=== PATIENT | male | born 1955 | race Caucasian/White ===

== ENCOUNTER → 2016-12-27 | Outpatient (CLI) | payer BC, MEDICAID ==
[2016-07-26 22:23] VITALS: BP 172/76
--- NOTE | 2016-12-28 08:00 | VAS ---
HISTORY: Carotid bruit Study: Carotid sonogram Comparison: None Technique: Multiple yarbrough scale and color flow Doppler images of the right and left carotid arterial system were obtained. The vertebral arterial system was evaluated as well. Findings: Normal color flow Doppler is seen throughout the right and left carotid arterial system. No hemodyn amically significant stenosis is seen based on velocity criteria. The right vertebral artery was no t identified. Flow in the left vertebral artery was antegrade.. IMPRESSION: 1. No hemodynamically significant stenosis. 2. Right vertebral artery not identified Reported By:
== END ==
LOC: RAD 10:08
PROVIDERS: ATTEND Internal Medicine Cardiovascular Disease
DX: R07.89 Other chest pain (principal); R09.89 Other specified symptoms and signs involving the circulatory and respiratory systems; R06.09 Other forms of dyspnea
CPT/HCPCS: 93880

== ENCOUNTER → 2017-01-10 | Outpatient (CLI) | payer BC, MEDICAID ==
[2016-07-26 22:23] VITALS: BP 172/76
== END ==
LOC: RAD 15:04
PROVIDERS: ATTEND Internal Medicine Cardiovascular Disease
DX: R07.89 Other chest pain (principal); R09.89 Other specified symptoms and signs involving the circulatory and respiratory systems; R06.09 Other forms of dyspnea
CPT/HCPCS: 93306

== ENCOUNTER → 2017-01-14 | Outpatient (CLI) | payer BC, MEDICAID ==
[2016-07-26 22:23] VITALS: BP 172/76
[~2017-01-14] MED LIST: LEXISCAN IV ONE
--- NOTE | 2017-01-14 13:37 | CT ---
HISTORY: Dyspnea Study: CT chest without con Comparison: July 27, 2016 Technique: Axial non contrast images with coronal and sagittal reformats. Dose reduction procedures were use with MA/kv adjusted for body size. Findings: Examination of the mediastinum demonstrated no evidence for mediastinal masses, enlarged lymphadenop athy, or enlarged hilar adenopathy. Calcified mediastinal node is present suggestive of old granulom atous disease. Coronary artery calcifications are present. No pleural effusions are identified. No c hest wall or axillary abnormality is identified. Those portions of the upper abdominal organs visual ized were within normal limits with the exception of a stable benign left adrenal adenoma. The lungs are hyperinflated. Emphysematous changes are present in the upper lobes more prominent on the right than the left. No alveolar infiltrates, areas of consolidation, nodules, or masses are identified. There is some peribronchial thickening consistent with bronchitis which could be acute, chronic, or both. IMPRESSION: Upper lobe emphysematous changes right greater than left. Hyperinflation Peribronchial thickening consistent with bronchitis which could be acute, chronic, or both. Reported By:
== END ==
LOC: RAD 08:29
PROVIDERS: ATTEND Internal Medicine Cardiovascular Disease
DX: R07.89 Other chest pain (principal); R09.89 Other specified symptoms and signs involving the circulatory and respiratory systems; R06.09 Other forms of dyspnea
CPT/HCPCS: 71250; 78452; 93017; A9502; J2785

== ENCOUNTER → 2017-11-07 | Outpatient (CLI) | payer BC, MEDICAID ==
[2016-07-26 22:23] VITALS: BP 172/76
--- NOTE | 2017-11-07 09:17 | VAS ---
HISTORY: Bilateral lower extremity edema Study: Bilateral lower extremity venous Doppler Comparison: None Technique: Multiple grayscale as well as spectral and color Doppler images of the bilateral lower ext remities were obtained. Findings: Sonographic evaluation of the bilateral lower extremities was performed from the level of the common femoral through the tibial veins bilaterally. There is normal compressibility, phasicity, and augment ation. IMPRESSION: No evidence for DVT. Reported By:
== END ==
LOC: RAD 08:21
PROVIDERS: ATTEND Physician Assistant
DX: R06.09 Other forms of dyspnea (principal); R22.43 Localized swelling, mass and lump, lower limb, bilateral
CPT/HCPCS: 93970

== ENCOUNTER → 2017-12-05 | Outpatient (CLI) | payer BC, MEDICAID ==
[2016-07-26 22:23] VITALS: BP 172/76
== END ==
LOC: RAD 15:28
PROVIDERS: ATTEND Physician Assistant
DX: R06.00 Dyspnea, unspecified (principal); R22.40 Localized swelling, mass and lump, unspecified lower limb
CPT/HCPCS: 93306

== ENCOUNTER 2018-11-10 16:30 | Inpatient (IN) ==
[2018-11-10] MEDS ORDERED: TUSSIONEX PENNKINETIC SUSP PO PRN (17:48)
[2018-11-10 18:11] LABS: ABG ALLEN TEST POS; ABG BASE EXCESS 4.9 mmol/L (-2.0-2.0); ABG HCO3 29.2 mmol/L (22-26)
[2018-11-10 18:24] LABS: BASOPHILS % (AUTO) 0.2 % (0.2-1.0); HEMATOCRIT 41.4 % (42.0-54.0); HEMOGLOBIN 14.2 g/dL (13.5-18.0); LYMPHOCYTES # (AUTO) 0.8 X10^3/uL (1.3-2.9); LYMPHOCYTES % (AUTO) 7.7 % (21.0-51.0); MEAN CORPUSCULAR HEMOGLOBIN 30.2 pg (27.0-34.0); MEAN CORPUSCULAR HGB CONC 34.3 g/dL (33.0-35.0); MEAN CORPUSCULAR VOLUME 87.9 fL (80.0-100.0); MEAN PLATELET VOLUME 8.6 fL (7.4-11.0); MONOCYTES # (AUTO) 0.9 x10^3/uL (0.3-0.8); MONOCYTES % (AUTO) 8.7 % (0.0-13.0); NEUTROPHILS # (AUTO) 9.1 x10^3/uL (2.2-4.8); NEUTROPHILS % (AUTO) 83.4 % (42.0-75.0); PLATELET COUNT 116 X10^3/uL (150.0-450.0); RED BLOOD COUNT 4.71 X10^6/uL (4.7-6.0); RED CELL DISTRIBUTION WIDTH 16.1 % (11.6-16.5); WHITE BLOOD COUNT 10.9 X10^3/uL (3.6-10.0)
[2018-11-10 18:36] LABS: ALANINE AMINOTRANSFERASE 30 Units/L (12-78); ALBUMIN 3.2 g/dL (3.4-5.0); ALKALINE PHOSPHATASE 55 Units/L (46-116); ASPARTATE AMINO TRANSFERASE 22 Units/L (15-37); BLOOD UREA NITROGEN 14 mg/dL (7-18); CALCIUM 8.8 mg/dL (8.5-10.1); CARBON DIOXIDE 28.4 mmol/L (21-32); CHLORIDE 97 mmol/L (98-107); COR CA(FOR HYPOALB) 9.4 mg/dL (8.5-10.1); COR NA(FOR HYPERGLY) 138 mmol/L (136-145); SODIUM 137 mmol/L (136-145); TOTAL PROTEIN 7.5 g/dL (6.4-8.2); eGFR NON BLACK RACES > 60 (>60)
[2018-11-10 19:15] VITALS: BMI 32.5
[2018-11-10] MEDS ORDERED: NS 1/2 1000 ML IV 1,000 ML ONE (19:27)
[2018-11-10] MEDS: NS 1/2 1000 ML IV 1,000 ML IV SCH (19:34)
[2018-11-10] MEDS: LEVAQUIN PREMIX IV 750 MG 750 MG/150 ML BAG IV SCH (19:34)
[2018-11-10] MEDS: PULMICORT NEB TX 0.5 MG NEB SCH (19:59)
[2018-11-10] MEDS: DUONEB 0.5 MG/3 MG NEB SCH (19:59)
--- NOTE | 2018-11-10 21:50 | RAD ---
HISTORY: Pneumonia Study: Single-view of the chest Comparison: July 26, 2016 Findings: The patient is rotated. The cardiac silhouette is enlarged. The left lower lobe is partially obscured. Otherwise the visualized lungs are clear without focal infiltrate or effusion. A right-sided port is noted and unchanged in position. If symptoms or clinical concern persist correlation with follow-up exam to include PA and lateral views may be helpful. IMPRESSION: 1. Cardiomegaly. Reported By:
[2018-11-10] MEDS: ROBITUSSIN DM PO SCH ×2 (22:51)
[2018-11-10] MEDS: ZOSYN VIAL 4.5 GRAMS 4.5 G in NS 100 ML IV + SPIKE MINIBAG* 100 ML IV SCH ×2 (22:52)
[2018-11-11] MEDS: DUONEB 0.5 MG/3 MG NEB SCH ×6 (00:07→20:15)
[2018-11-11] MEDS: ZOSYN VIAL 4.5 GRAMS 4.5 G in NS 100 ML IV + SPIKE MINIBAG* 100 ML IV SCH ×3 (05:30→21:01)
[2018-11-11] MEDS ORDERED: LASIX PO SCH (06:00)
[2018-11-11 06:11] LABS: BASOPHILS % (AUTO) 0.1 % (0.2-1.0); EOSINOPHILS % (AUTO) 0.1 % (0.9-2.9); HEMATOCRIT 37.7 % (42.0-54.0); HEMOGLOBIN 12.9 g/dL (13.5-18.0); LYMPHOCYTES # (AUTO) 0.9 X10^3/uL (1.3-2.9); LYMPHOCYTES % (AUTO) 9.7 % (21.0-51.0); MEAN CORPUSCULAR HGB CONC 34.3 g/dL (33.0-35.0); MEAN CORPUSCULAR VOLUME 87.5 fL (80.0-100.0); MEAN PLATELET VOLUME 8.6 fL (7.4-11.0); MONOCYTES # (AUTO) 0.8 x10^3/uL (0.3-0.8); MONOCYTES % (AUTO) 9.5 % (0.0-13.0); NEUTROPHILS # (AUTO) 7.1 x10^3/uL (2.2-4.8); NEUTROPHILS % (AUTO) 80.6 % (42.0-75.0); PLATELET COUNT 108 X10^3/uL (150.0-450.0); RED BLOOD COUNT 4.31 X10^6/uL (4.7-6.0); RED CELL DISTRIBUTION WIDTH 15.8 % (11.6-16.5); WHITE BLOOD COUNT 8.9 X10^3/uL (3.6-10.0)
[2018-11-11 06:14] LABS: ALANINE AMINOTRANSFERASE 26 Units/L (12-78); ALBUMIN 2.8 g/dL (3.4-5.0); ALKALINE PHOSPHATASE 48 Units/L (46-116); ASPARTATE AMINO TRANSFERASE 17 Units/L (15-37); BLOOD UREA NITROGEN 17 mg/dL (7-18); CALCIUM 8.5 mg/dL (8.5-10.1); CARBON DIOXIDE 29.1 mmol/L (21-32); CHLORIDE 97 mmol/L (98-107); COR CA(FOR HYPOALB) 9.5 mg/dL (8.5-10.1); COR NA(FOR HYPERGLY) 138 mmol/L (136-145); SODIUM 137 mmol/L (136-145); TOTAL PROTEIN 6.9 g/dL (6.4-8.2); eGFR NON BLACK RACES > 60 (>60)
[2018-11-11] MEDS ORDERED: GLUCOPHAGE PO SCH (07:00)
[2018-11-11] MEDS: PULMICORT NEB TX 0.5 MG NEB SCH ×2 (09:00→20:15)
[2018-11-11] MEDS ORDERED: GLUCOPHAGE ONE (09:27)
[2018-11-11] MEDS ORDERED: TOPROL XL ONE (09:27)
[2018-11-11] MEDS: ROBITUSSIN DM PO SCH ×4 (09:29→21:01)
[2018-11-11] MEDS: CARDIZEM CD 240 MG PO SCH (09:29)
[2018-11-11] MEDS: TOPROL XL PO SCH (09:29)
[2018-11-11] MEDS: LEVAQUIN PREMIX IV 750 MG 750 MG/150 ML BAG IV SCH (09:29)
[2018-11-11] MEDS: NEURONTIN CAP 300 MG PO SCH ×2 (09:29→21:02)
[2018-11-11] MEDS: NS 1/2 1000 ML IV 1,000 ML IV SCH (09:30)
[2018-11-11] MEDS ORDERED: NS 100 ML IV 100 ML ONE (11:29)
--- NOTE | 2018-11-11 12:34 | DR.UPDATE ---
H&P Update History and Physical Update: History and Physical reviewed and patient examined. Changes noted: Yes with the following: WAS SEEN IN THE OFFICE TODAY FOR COMPLAINTS OF SHORTNESS OF BREATH AND A PRODUCTIVE COUGH. HE REPORTED WHEEZING AND CONGESTION. HE REPORTED USING HIS INHALERS AT HOME WITHOUT IMPROVEMENT IN SYMPTOMS. HIS OXYGEN SATURATIONS WERE NOTED TO BE IN THE LOW 80s ON ROOM AIR WHILE AT REST. HE WAS ADMITTED FOR FURTHER EVALUATION AND TREATMENT OF COMMUNITY ACQUIRED PNEUMONIA, COPD EXACERBATION, AND HYPOXIA. ON ADMISSION, WE PLAN TO OBTAIN LABS, CHEST XRAY, AND START HIM ON IV LEVAQUIN AND ZOSYN. A H&P WAS COMPLETED PRIOR TO ADMISSION. NO OTHER CHANGES NOTED TO H&P.
--- NOTE | 2018-11-11 13:07 | CT ---
HISTORY: Shortness of breath Study: CT chest with contrast Comparison: 01/14/2017 Technique: Multiple axial images of the chest were obtained from the thoracic inlet to the upper abdomen after the administration of IV contrast. Findings: The mediastinum does not demonstrate significant pathological lymphadenopathy. There is no paracardial effusion observed. The thoracic aorta is normal in its contour without evidence for aneurysmal dilatation. The central pulmonary arterial system does not demonstrate central filling defects to suggest pulmonary emboli. Evaluation of the lung parenchyma demonstrates scattered areas of postinflammatory changes within the right and left chest. Subpleural emphysematous changes of the right apical lung zone are observed as well. Subpleural nodular densities within the right and left chest are observed. On image 41 of series 5 a 5 mm pulmonary nodule within medial aspect the right lower lobe is observed likely postinflammatory change. Likewise subpleural nodular density within the left lower lobe measuring 7 mm is observed likely postinflammatory. Focal consolidation within left lower lobe is noted. Continued follow-up complete resolution will be needed. The bony thorax is unremarkable in its appearance. The visualized portions of the upper abdomen are grossly unremarkable. IMPRESSION: Scattered pulmonary nodules are likely postinflammatory in nature. Likewise, focal airspace opacification in the left lower lobe is observed consistent with acute pneumonitis. No evidence for acute pulmonary embolus can be identified. No pathological lymphadenopathy can be observed. Incidental note of an adrenal adenoma within the left adrenal gland is made. Reported By:
[2018-11-11] MEDS: PLAVIX PO SCH (13:56)
[2018-11-11] MEDS: LANTUS SC SCH (17:02)
[2018-11-11] MEDS ORDERED: LANTUS SC SCH ×2 (21:00→22:00)
[2018-11-11] MEDS ORDERED: AMBIEN PO PRN (21:00)
[2018-11-11] MEDS: ZANAFLEX PO SCH (21:01)
[2018-11-11] MEDS: SNACK - Diabetic Appropriate PO SCH (21:03)
--- NOTE | 2018-11-11 21:58 | PCM.PROG ---
Progress Note - Progress Note for Day of Date of Exam: 11/11/18 - Subjective Subjective: WAS ADMITTED YESTERDAY FOR CAP AND COPD EXACERBATION. TODAY, HE IS ALERT AND ORIENTED, SITTING UP ON THE SIDE OF THE BED ON MORNING ROUNDS. HE CONTINUES WITH COMPLAINTS OF A PRODUCTIVE COUGH, WHEEZING, AND SHORTNESS OF BREATH. ON EXAMINATION, HEART IS REGULAR IN RATE AND RHYTHM. BI LATERAL LUNGS ARE CONTINUE WITH SCATTERED WHEEZING THROUGHOUT. ABDOMEN IS ROUND, SOFT, AND NON-TENDER WITH NORMAL BOWEL SOUNDS NOTED IN ALL QUADRANTS. HIS VITALS THIS MORNING ARE 97.8-82-25-90%NC-164/71. LABS WERE OBTAINED. ABNORMAL LAB VALUES INCLUDE THE FOLLOWING: RBC 4.31, HGB 12.9, HCT 37.7, CHLORIDE 97, GLUCOSE 145, ALBUMIN 2.8. AN ABG WAS OBTAINED ON ADMISSION AND REVEALEDPH 7.460, PC02 41.0, P02 55.0, HC03 29.2, 02 SATURATION 90, BASE EXCESS 4.9. SPUTUM AND BLOOD CULTURES PENDING. SPUTUM CULTURE REPORTS GROWTH OF MODERATE GRAM POSITIVE COCCI. TODAY, WE PLAN TO OBTAIN AN ECHO AND A CHEST CT. OTHERWISE, WE WILL FOLLOW UP WITH AM LABS AND CHEST XRAY AND CONTINUE TO MONITOR. - Past Medical Family Social History Past Med/Fam/Surg Hx: No changes since H&P Allergies: Allergies No Known Drug Allergies Allergy (Verified 11/10/18 19:33) - Review of Systems ROS: No change since H&P - Vital Signs and I&O's Vital Signs: Temperature 97.8 F Pulse Rate [Bilateral Radial] 81 Pulse Rate 76 Respiratory Rate 18 Blood Pressure [Right Arm] 155/61 Blood Pressure [Left Arm] 142/65 Blood Pressure 130/62 O2 Sat by Pulse Oximetry 94 Intake and Output: Intake & Output 11/09/18 11/10/18 11/11/18 11/12/18 11:59 11:59 11:59 11:59 Intake Total 760 / 760 1428 / 1428 Output Total 250 / 250 Balance 510 / 510 1428 / 1428 - Physical Exam Oriented: Normal Eyes: Normal Ear: Normal Nose: Normal Throat: Normal Respiratory: Diminished, Wheezes Cardiovascular: Normal. negative: S3, S4, Murmur : Normal Auscultation: Bowel Sounds: Normal Palpation: Normal Tenderness: Normal Skin: Normal Musculoskeletal: Normal Mood Description: Calm Affect: Normal Speech Pattern: Clear, Appropriate - Laboratory and Diagnostics Result Diagrams: 11/11/18 05:36 11/11/18 05:36 Labs: 11/10/18 18:05 Sputum - Expectorated Sputum Sputum Culture - Preliminary 11/10/18 18:05 Sputum - Expectorated Sputum - Final Laboratory WBC 8.9 X10^3/uL (3.6-10.0) 11/11/18 05:36 RBC 4.31 X10^6/uL (4.7-6.0) L 11/11/18 05:36 Hgb 12.9 g/dL (13.5-18.0) L 11/11/18 05:36 Hct 37.7 % (42.0-54.0) L 11/11/18 05:36 MCV 87.5 fL (80.0-100.0) 11/11/18 05:36 MCH 30.0 pg (27.0-34.0) 11/11/18 05:36 MCHC 34.3 g/dL (33.0-35.0) 11/11/18 05:36 RDW 15.8 % (11.6-16.5) 11/11/18 05:36 Plt Count 108 X10^3/uL (150.0-450.0) L 11/11/18 05:36 MPV 8.6 fL (7.4-11.0) 11/11/18 05:36 Neut % (Auto) 80.6 % (42.0-75.0) H 11/11/18 05:36 Lymph % (Auto) 9.7 % (21.0-51.0) L 11/11/18 05:36 [place] % (Auto) 9.5 % (0.0-13.0) 11/11/18 05:36 Eos % (Auto) 0.1 % (0.9-2.9) L 11/11/18 05:36 Baso % (Auto) 0.1 % (0.2-1.0) L 11/11/18 05:36 Neut # (Auto) 7.1 x10^3/uL (2.2-4.8) H 11/11/18 05:36 Lymph # (Auto) 0.9 X10^3/uL (1.3-2.9) L 11/11/18 05:36 [place] # (Auto) 0.8 x10^3/uL (0.3-0.8) 11/11/18 05:36 Eos # (Auto) 0.0 x10^3/uL (0.0-0.2) 11/11/18 05:36 Baso # (Auto) 0.0 X10^3/uL (0.0-0.1) 11/11/18 05:36 Absolute Nucleated RBC 0.0 /100WBC 11/11/18 05:36 Sample Site Lr 11/10/18 18:09 ABG pH 7.460 (7.35-7.45) H 11/10/18 18:09 ABG pCO2 41.0 mmHg (35.0-45.0) 11/10/18 18:09 ABG pO2 55.0 mmHg (80.0-100.0) L 11/10/18 18:09 ABG HCO3 29.2 mmol/L (22-26) H 11/10/18 18:09 ABG O2 Saturation 90.0 % (90-100) 11/10/18 18:09 ABG Base Excess 4.9 mmol/L (-2.0-2.0) H 11/10/18 18:09 Kip Test Pos 11/10/18 18:09 A-a Gradient 93.0 mmHg 11/10/18 18:09 FiO2 28.0 11/10/18 18:09 Blood Gas Comments Pt josé well. cdn 11/10/18 18:09 Sodium 137 mmol/L (136-145) 11/11/18 05:36 Corrected Sodium 138 mmol/L (136-145) 11/11/18 05:36 Potassium 3.5 mmol/L (3.5-5.1) 11/11/18 05:36 Chloride 97 mmol/L (98-107) L 11/11/18 05:36 Carbon Dioxide 29.1 mmol/L (21-32) 11/11/18 05:36 BUN 17 mg/dL (7-18) 11/11/18 05:36 Creatinine 1.10 mg/dL (0.70-1.30) 11/11/18 05:36 Est GFR (MDRD) Af Amer > 60 (>60) 11/11/18 05:36 Est GFR (MDRD) Non-Af > 60 (>60) 11/11/18 05:36 Glucose 145 mg/dL (65-99) H 11/11/18 05:36 POC Glucose (mg/dL) 142 mg/dL (65-99) H 11/11/18 20:55 Calcium 8.5 mg/dL (8.5-10.1) 11/11/18 05:36 Corrected Calcium 9.5 mg/dL (8.5-10.1) 11/11/18 05:36 Total Bilirubin 0.70 mg/dL (0.2-1.0) 11/11/18 05:36 AST 17 Units/L (15-37) 11/11/18 05:36 ALT 26 Units/L (12-78) 11/11/18 05:36 Alkaline Phosphatase 48 Units/L (46-116) 11/11/18 05:36 Total Protein 6.9 g/dL (6.4-8.2) 11/11/18 05:36 Albumin 2.8 g/dL (3.4-5.0) L 11/11/18 05:36 Globulin 4.1 g/dL (2.5-4.5) 11/11/18 05:36 Albumin/Globulin Ratio 0.7 Ratio (1.1-2.1) L 11/11/18 05:36 - Plan (1) Pneumonia Status: Acute Qualifiers: Pneumonia type: due to unspecified organism Laterality: unspecified laterality Lung location: unspecified part of lung Qualified Code(s): J18.9 - Pneumonia, unspecified organism Plan: IV ANTIBIOTICS, RESPIRATORY TX, SUPPLEMENTAL OXYGEN, OBTAIN CHEST CT, C ONTINUE TO MONITOR (2) COPD exacerbation Status: Acute Plan: IV ANTIBIOTICS, RESPIRATORY TX, SUPPLEMENTAL OXYGEN, OBTAIN CHEST CT, CONTINUE TO MONITOR (3) CHF (congestive heart failure) Status: Chronic Qualifiers: Heart failure type: unspecified Heart failure chronicity: chronic Qualified Code(s): I50.9 - Heart failure, unspecified Plan: OBTAIN ECHO, CONTINUE TO MONITOR (4) Diabetes mellitus, type 2 Status: Chronic Qualifiers: Diabetes mellitus terminal supervisor insulin use: with [facility] use Diabetes mellitus complication status: without complication Qualified Code(s): E11.9 - Type 2 diabetes mellitus without complications; Z79.4 - senior care (current) use of insulin (5) Hyperlipidemia Status: Chronic Qualifiers: Hyperlipidemia type: mixed hyperlipidemia Plan: CONTINUE HOME MEDS (6) Hypertension Status: Chronic Qualifiers: Hypertension type: essential hypertension Qualified Code(s): I10 - Essential (primary) hypertension Plan: CONTINUE HOME MEDS
[2018-11-12] MEDS: DUONEB 0.5 MG/3 MG NEB SCH ×6 (01:25→20:35)
[2018-11-12 05:18] LABS: BASOPHILS % (AUTO) 0.2 % (0.2-1.0); EOSINOPHILS % (AUTO) 0.4 % (0.9-2.9); HEMATOCRIT 40.2 % (42.0-54.0); HEMOGLOBIN 13.5 g/dL (13.5-18.0); LYMPHOCYTES # (AUTO) 1.1 X10^3/uL (1.3-2.9); LYMPHOCYTES % (AUTO) 17.1 % (21.0-51.0); MEAN CORPUSCULAR HEMOGLOBIN 29.8 pg (27.0-34.0); MEAN CORPUSCULAR HGB CONC 33.7 g/dL (33.0-35.0); MEAN CORPUSCULAR VOLUME 88.5 fL (80.0-100.0); MEAN PLATELET VOLUME 8.6 fL (7.4-11.0); MONOCYTES # (AUTO) 0.7 x10^3/uL (0.3-0.8); MONOCYTES % (AUTO) 10.7 % (0.0-13.0); NEUTROPHILS # (AUTO) 4.8 x10^3/uL (2.2-4.8); NEUTROPHILS % (AUTO) 71.6 % (42.0-75.0); PLATELET COUNT 135 X10^3/uL (150.0-450.0); RED BLOOD COUNT 4.54 X10^6/uL (4.7-6.0); RED CELL DISTRIBUTION WIDTH 15.6 % (11.6-16.5); WHITE BLOOD COUNT 6.7 X10^3/uL (3.6-10.0)
[2018-11-12 05:31] LABS: ALANINE AMINOTRANSFERASE 29 Units/L (12-78); ALBUMIN 3.1 g/dL (3.4-5.0); ALKALINE PHOSPHATASE 54 Units/L (46-116); ASPARTATE AMINO TRANSFERASE 18 Units/L (15-37); BLOOD UREA NITROGEN 20 mg/dL (7-18); CALCIUM 8.9 mg/dL (8.5-10.1); CHLORIDE 98 mmol/L (98-107); COR CA(FOR HYPOALB) 9.6 mg/dL (8.5-10.1); COR NA(FOR HYPERGLY) 139 mmol/L (136-145); CREATININE 1.15 mg/dL (0.70-1.30); SODIUM 138 mmol/L (136-145); TOTAL PROTEIN 7.7 g/dL (6.4-8.2); eGFR NON BLACK RACES > 60 (>60)
[2018-11-12 05:48] LABS: B-TYPE NATRIURETIC PEPTIDE 10.8 pg/mL (0-79)
--- NOTE | 2018-11-12 06:26 | RAD ---
Chest, one view Indication: Pneumonia Comparison: 11/10/18 Findings: There is stable cardiomegaly without congestive failure. Lungs are hyperinflated with coarsened interstitial markings, compatible with COPD. There is moderate peribronchial thickening. No acute alveolar infiltrates are identified. There is no pleural effusion or pneumothorax. A right-sided port catheter tip is coiled at the junction of the right IJ and SVC. Impression: Cardiomegaly without CHF. COPD with moderate peribronchial thickening, either representing acute, chronic or acute on bronchitis. No acute alveolar infiltrates identified Reported By:
[2018-11-12] MEDS ORDERED: POTASSIUM CHL 40 MEQ/NS 0.45% 500 ML IV PRN (06:50)
[2018-11-12] MEDS ORDERED: K-DUR TAB 20 MEQ PO PRN (06:50)
[2018-11-12] MEDS ORDERED: KLOR-CON PO PRN (06:50)
[2018-11-12] MEDS ORDERED: K-RIDER 10 MEQ/NS 100 ML 10 MEQ/100 ML BAG IV PRN (06:50)
[2018-11-12] MEDS ORDERED: MICRO K EXTEN CAP 10 MEQ PO PRN (06:50)
[2018-11-12] MEDS ORDERED: POTASSIUM CHLORIDE LIQ 20 MEQ UDC PO PRN (06:50)
[2018-11-12] MEDS ORDERED: POTASSIUM CHL 60 MEQ/NS 0.45% 500 ML IV PRN (06:50)
[2018-11-12] MEDS: NS 1/2 1000 ML IV 1,000 ML IV SCH ×3 (07:34→14:24)
[2018-11-12] MEDS ORDERED: TOPROL XL ONE (07:40)
[2018-11-12] MEDS: TOPROL XL PO SCH (08:21)
[2018-11-12] MEDS: CARDIZEM CD 240 MG PO SCH (08:21)
[2018-11-12] MEDS: ROBITUSSIN DM PO SCH ×4 (08:21→20:23)
[2018-11-12] MEDS: NEURONTIN CAP 300 MG PO SCH ×2 (08:22→20:22)
[2018-11-12] MEDS: PLAVIX PO SCH (08:22)
[2018-11-12] MEDS: LEVAQUIN PREMIX IV 750 MG 750 MG/150 ML BAG IV SCH (08:23)
[2018-11-12] MEDS: PULMICORT NEB TX 0.5 MG NEB SCH ×2 (08:26→20:35)
[2018-11-12] MEDS: LASIX IVP SCH ×2 (11:26→20:23)
--- NOTE | 2018-11-12 12:28 | PCM.PROG ---
Progress Note - Progress Note for Day of Date of Exam: 11/12/18 - Subjective Subjective: WAS ADMITTED YESTERDAY FOR CAP AND COPD EXACERBATION. HE ALSO HAS A HISTORY OF CHF. TODAY, HE IS ALERT AND ORIENTED, SITTING UP ON THE SIDE OF THE BED ON MORNING ROUNDS. HE CONTINUES WITH COMPLAINTS OF A PRODUCTIVE COUGH, WHEEZING, AND SHORTNESS OF BREATH, BUT REPORTS SLIGHT IMPROVEMENT SINCE YESTERDAY. ON EXAMINATION, HEART IS REGULAR IN RATE AND RHYTHM. BILATERAL LUNGS ARE CONTINUE WITH SCATTERED WHEEZING THROUGHOUT. ABDOMEN IS ROUND, SOFT, AND NON-TENDER WITH NORMAL BOWEL SOUNDS NOTED IN ALL QUADRANTS. HIS VITALS THIS MORNING ARE 98.1-78-23-92%NC-126/69. LABS WERE OBTAINED. ABNORMAL LAB VALUES INCLUDE THE FOLLOWING: RBC 4.54, HCT 40.2, BUN 20, GLUCOSE 138, ALBUMIN 3.1, G LOBULIN 4.6. SPUTUM AND BLOOD CULTURES PENDING. SPUTUM CULTURE REPORTS GROWTH OF MODERATE GRAM POSITIVE COCCI. A CHEST CT WAS OBTAINED YESTERDAY AND REVEALED: Scattered pulmonary nodules are likely postinflammatory in nature. Likewise, focal airspace opacification in the left lower lobe is observed consistent with acute pneumonitis. No evidence for acute pulmonary embolus can be identified. No pathological lymphadenopathy can be observed. Incidental note of an adrenal adenoma within the left adrenal gland is made. ECHO REVEALED AN EJECTION FRACTION OF 52%. THIS MORNINGS CHEST XRAY REVEALED: Cardiomegaly without CHF. COPD with moderate peribronchial thickening, either representing acute, chronic or acute on bronchitis. No acute alveolar infiltrates identified. TODAY, WE WILL CONTINUE WITH IV ANTIBIOTICS, RESPIRATORY TX, SUPPLEMENTAL OXYGEN, LASIX 40MG IV BID. OTHERWISE, WE WILL FOLLOW UP WITH AM LABS AND CHEST XRAY AND CONTINUE TO MONITOR. - Past Medical Family Social History Past Med/Fam/Surg Hx: No changes since H&P Allergies: Allergies No Known Drug Allergies Allergy (Verified 11/10/18 19:33) - Review of Systems ROS: No change since H&P - Vital Signs and I&O's Vital Signs: Temperature 98.1 F Pulse Rate [Bilateral Radial] 82 Pulse Rate 78 Respiratory Rate 30 Blood Pressure [Right Arm] 155/61 Blood Pressure [Left Arm] 141/65 Blood Pressure 130/62 O2 Sat by Pulse Oximetry 93 Intake and Output: Intake & Output 11/10/18 11/11/18 11/12/18 11/13/18 11:59 11:59 11:59 11:59 Intake Total 760 / 760 2958 / 2958 Output Total 250 / 250 Balance 510 / 510 2958 / 2958 - Physical Exam Oriented: Normal Eyes: Normal Ear: Normal Nose: Normal Throat: Normal Respiratory: Diminished, Wheezes Cardiovascular: Normal. negative: S3, S4, Murmur : Normal Auscultation: Bowel Sounds: Normal Palpation: Normal Tenderness: Normal Skin: Normal Musculoskeletal: Normal Mood Description: Calm Affect: Normal Speech Pattern: Clear, Appropriate - Laboratory and Diagnostics Result Diagrams: 11/12/18 04:50 11/12/18 04:50 Labs: 11/10/18 18:05 Blood Blood Culture - Preliminary 11/10/18 18:00 Blood Blood Culture - Preliminary 11/10/18 18:05 Sputum - Expectorated Sputum Sputum Culture - Final 11/10/18 18:05 Sputum - Expectorated Sputum - Final Laboratory WBC 6.7 X10^3/uL (3.6-10.0) 11/12/18 04:50 RBC 4.54 X10^6/uL (4.7-6.0) L 11/12/18 04:50 Hgb 13.5 g/dL (13.5-18.0) 11/12/18 04:50 Hct 40.2 % (42.0-54.0) L 11/12/18 04:50 MCV 88.5 fL (80.0-100.0) 11/12/18 04:50 MCH 29.8 pg (27.0-34.0) 11/12/18 04:50 MCHC 33.7 g/dL (33.0-35.0) 11/12/18 04:50 RDW 15.6 % (11.6-16.5) 11/12/18 04:50 Plt Count 135 X10^3/uL (150.0-450.0) L 11/12/18 04:50 MPV 8.6 fL (7.4-11.0) 11/12/18 04:50 Neut % (Auto) 71.6 % (42.0-75.0) 11/12/18 04:50 Lymph % (Auto) 17.1 % (21.0-51.0) L 11/12/18 04:50 [place] % (Auto) 10.7 % (0.0-13.0) 11/12/18 04:50 Eos % (Auto) 0.4 % (0.9-2.9) L 11/12/18 04:50 Baso % (Auto) 0.2 % (0.2-1.0) 11/12/18 04:50 Neut # (Auto) 4.8 x10^3/uL (2.2-4.8) 11/12/18 04:50 Lymph # (Auto) 1.1 X10^3/uL (1.3-2.9) L 11/12/18 04:50 [place] # (Auto) 0.7 x10^3/uL (0.3-0.8) 11/12/18 04:50 Eos # (Auto) 0.0 x10^3/uL (0.0-0.2) 11/12/18 04:50 Baso # (Auto) 0.0 X10^3/uL (0.0-0.1) 11/12/18 04:50 Absolute Nucleated RBC 0.1 /100WBC 11/12/18 04:50 Sample Site Lr 11/10/18 18:09 ABG pH 7.460 (7.35-7.45) H 11/10/18 18:09 ABG pCO2 41.0 mmHg (35.0-45.0) 11/10/18 18:09 ABG pO2 55.0 mmHg (80.0-100.0) L 11/10/18 18:09 ABG HCO3 29.2 mmol/L (22-26) H 11/10/18 18:09 ABG O2 Saturation 90.0 % (90-100) 11/10/18 18:09 ABG Base Excess 4.9 mmol/L (-2.0-2.0) H 11/10/18 18:09 Kip Test Pos 11/10/18 18:09 A-a Gradient 93.0 mmHg 11/10/18 18:09 FiO2 28.0 11/10/18 18:09 Blood Gas Comments Pt josé well. cdn 11/10/18 18:09 Sodium 138 mmol/L (136-145) 11/12/18 04:50 Corrected Sodium 139 mmol/L (136-145) 11/12/18 04:50 Potassium 3.8 mmol/L (3.5-5.1) 11/12/18 04:50 Chloride 98 mmol/L (98-107) 11/12/18 04:50 Carbon Dioxide 31.0 mmol/L (21-32) 11/12/18 04:50 BUN 20 mg/dL (7-18) H 11/12/18 04:50 Creatinine 1.15 mg/dL (0.70-1.30) 11/12/18 04:50 Est GFR (MDRD) Af Amer > 60 (>60) 11/12/18 04:50 Est GFR (MDRD) Non-Af > 60 (>60) 11/12/18 04:50 Glucose 138 mg/dL (65-99) H 11/12/18 04:50 POC Glucose (mg/dL) 182 mg/dL (65-99) H 11/12/18 11:29 Calcium 8.9 mg/dL (8.5-10.1) 11/12/18 04:50 Corrected Calcium 9.6 mg/dL (8.5-10.1) 11/12/18 04:50 Magnesium 2.2 mg/dL (1.7-2.9) 11/12/18 04:50 Total Bilirubin 0.50 mg/dL (0.2-1.0) 11/12/18 04:50 AST 18 Units/L (15-37) 11/12/18 04:50 ALT 29 Units/L (12-78) 11/12/18 04:50 Alkaline Phosphatase 54 Units/L (46-116) 11/12/18 04:50 B-Natriuretic Peptide 10.8 pg/mL (0-79) 11/12/18 04:50 Total Protein 7.7 g/dL (6.4-8.2) 11/12/18 04:50 Albumin 3.1 g/dL (3.4-5.0) L 11/12/18 04:50 Globulin 4.6 g/dL (2.5-4.5) H 11/12/18 04:50 Albumin/Globulin Ratio 0.7 Ratio (1.1-2.1) L 11/12/18 04:50 - Plan (1) Pneumonia Status: Acute Qualifiers: Pneumonia type: due to unspecified organism Laterality: unspecified laterality Lung location: unspecified part of lung Qualified Code(s): J18.9 - Pneumonia, unspecified organism Plan: IV ANTIBIOTICS, RESPIRATORY TX, SUPPLEMENTAL OXYGEN, OBTAIN CHEST CT, CONTINUE TO MONITOR (2) COPD exacerbation Status: Acute Plan: IV ANTIBIOTICS, RESPIRATORY TX, SUPPLEMENTAL OXYGEN, CONTINUE TO MONITOR (3) CHF (congestive heart failure) Status: Chronic Qualifiers: Heart failure type: unspecified Heart failure chronicity: chronic Qualified Code(s): I50.9 - Heart failure, unspecified Plan: CONTINUE TO MONITOR (4) Diabetes mellitus, type 2 Status: Chronic Qualifiers: Diabetes mellitus assisted insulin use: with assisted use Diabetes mellitus complication status: without complication Qualified Code(s): E11.9 - Type 2 diabetes mellitus without complications; Z79.4 - termite exterminator (current) use of insulin (5) Hyperlipidemia Status: Chronic Qualifiers: Hyperlipidemia type: mixed hyperlipidemia Plan: CONTINUE HOME MEDS (6) Hypertension Status: Chronic Qualifiers: Hypertension type: essential hypertension Qualified Code(s): I10 - Essential (primary) hypertension Plan: CONTINUE HOME MEDS
[2018-11-12] MEDS: ZOSYN VIAL 4.5 GRAMS 4.5 G in NS 100 ML IV + SPIKE MINIBAG* 100 ML IV SCH ×3 (13:14→21:30)
[2018-11-12] MEDS ORDERED: NS 1/2 1000 ML IV 1,000 ML ONE (13:44)
[2018-11-12] MEDS: LANTUS SC SCH (16:16)
[2018-11-12] MEDS: ZANAFLEX PO SCH (20:22)
[2018-11-12] MEDS: SNACK - Diabetic Appropriate PO SCH (20:29)
[2018-11-13] MEDS: DUONEB 0.5 MG/3 MG NEB SCH ×4 (01:10→12:09)
[2018-11-13] MEDS: ZOSYN VIAL 4.5 GRAMS 4.5 G in NS 100 ML IV + SPIKE MINIBAG* 100 ML IV SCH (05:17)
[2018-11-13] MEDS: NS 1/2 1000 ML IV 1,000 ML IV SCH (05:17)
[2018-11-13 06:12] LABS: BASOPHILS % (AUTO) 0.3 % (0.2-1.0); EOSINOPHILS # (AUTO) 0.1 x10^3/uL (0.0-0.2); EOSINOPHILS % (AUTO) 0.8 % (0.9-2.9); HEMATOCRIT 37.8 % (42.0-54.0); HEMOGLOBIN 12.9 g/dL (13.5-18.0); LYMPHOCYTES # (AUTO) 1.1 X10^3/uL (1.3-2.9); LYMPHOCYTES % (AUTO) 17.8 % (21.0-51.0); MEAN CORPUSCULAR HEMOGLOBIN 29.8 pg (27.0-34.0); MEAN CORPUSCULAR HGB CONC 34.2 g/dL (33.0-35.0); MEAN PLATELET VOLUME 8.6 fL (7.4-11.0); MONOCYTES # (AUTO) 0.7 x10^3/uL (0.3-0.8); MONOCYTES % (AUTO) 11.6 % (0.0-13.0); NEUTROPHILS # (AUTO) 4.3 x10^3/uL (2.2-4.8); NEUTROPHILS % (AUTO) 69.5 % (42.0-75.0); PLATELET COUNT 143 X10^3/uL (150.0-450.0); RED BLOOD COUNT 4.34 X10^6/uL (4.7-6.0); RED CELL DISTRIBUTION WIDTH 15.6 % (11.6-16.5); WHITE BLOOD COUNT 6.2 X10^3/uL (3.6-10.0)
[2018-11-13 06:28] LABS: ALANINE AMINOTRANSFERASE 38 Units/L (12-78); ALBUMIN 2.9 g/dL (3.4-5.0); ALKALINE PHOSPHATASE 53 Units/L (46-116); ASPARTATE AMINO TRANSFERASE 24 Units/L (15-37); BLOOD UREA NITROGEN 16 mg/dL (7-18); CALCIUM 8.3 mg/dL (8.5-10.1); CARBON DIOXIDE 30.9 mmol/L (21-32); CHLORIDE 102 mmol/L (98-107); COR CA(FOR HYPOALB) 9.2 mg/dL (8.5-10.1); COR NA(FOR HYPERGLY) 140 mmol/L (136-145); CREATININE 1.03 mg/dL (0.70-1.30); SODIUM 139 mmol/L (136-145); TOTAL PROTEIN 7.2 g/dL (6.4-8.2); eGFR NON BLACK RACES > 60 (>60)
--- NOTE | 2018-11-13 06:33 | RAD ---
History: Pneumonia Study: Portable AP chest Comparison: Yesterday Findings: There is unchanged mild cardiomegaly and moderate vascular congestion. There is no significant effusion. No focal lung consolidation is demonstrated. There is an unchanged Port-A-Cath via the right subclavian vein. Impression: Unchanged vascular congestion without effusion Reported By:
[2018-11-13] MEDS ORDERED: TOPROL XL ONE (07:05)
[2018-11-13] MEDS: PULMICORT NEB TX 0.5 MG NEB SCH (08:10)
[2018-11-13] MEDS: TOPROL XL PO SCH (08:30)
[2018-11-13] MEDS: LASIX IVP SCH (08:30)
[2018-11-13] MEDS: CARDIZEM CD 240 MG PO SCH (08:30)
[2018-11-13] MEDS: LEVAQUIN PREMIX IV 750 MG 750 MG/150 ML BAG IV SCH (08:30)
[2018-11-13] MEDS: PLAVIX PO SCH (08:30)
[2018-11-13] MEDS: NEURONTIN CAP 300 MG PO SCH (08:30)
[2018-11-13] MEDS: ROBITUSSIN DM PO SCH (08:30)
[2018-11-13 11:45] VITALS: BP 161/81
== END 2018-11-13 12:50 | disposition home or self-care (01) | DRG 194 ==
LOC: ICU 17:37
PROVIDERS: ADMIT Internal Medicine; ATTEND Internal Medicine
DX: E11.65 Type 2 diabetes mellitus with hyperglycemia; I10 Essential (primary) hypertension; Z66 Do not resuscitate; J44.1 Chronic obstructive pulmonary disease with (acute) exacerbation; R06.02 Shortness of breath; J18.8 Other pneumonia, unspecified organism; I25.9 Chronic ischemic heart disease, unspecified; J44.0 Chronic obstructive pulmonary disease with (acute) lower respiratory infection
CPT/HCPCS: 36415; 36600; 71010; 71045; 71260; 80053; 82803; 83735; 83880; 84132; 85025; 87040; 87070; 87205; 93306; 94640; A4222; J1815; J1940; J1956; J2543; J7050; J7620; J7626

== ENCOUNTER 2023-05-31 11:52 | Inpatient (IN) ==
[2023-05-31] MEDS ORDERED: TYLENOL 325 MG TAB PO PRN (12:17)
[2023-05-31] MEDS ORDERED: BENADRYL INJ 50 MG VIAL IVP ONE (12:17)
[2023-05-31 15:00] VITALS: BMI 26.3
[2023-05-31] MEDS: NS 1,000 ML IV 1,000 ML IV SCH (15:02)
[2023-05-31] MEDS ORDERED: BENADRYL INJ 50 MG VIAL ONE (15:26)
[2023-05-31] MEDS ORDERED: NS 500 ML IV 500 ML IV ONE (17:58)
[2023-05-31] MEDS: NICOTINE PATCH TD SCH (19:23)
[2023-05-31] MEDS: CHECK PATCH XX SCH (21:05)
[2023-06-01 04:05] LABS: BILIRUBIN,URINE NEGATIVE (NEGATIVE); BLOOD/HEMOGLOBIN,URINE 2+ (NEGATIVE); GLUCOSE, URINE 1+ (NEGATIVE); KETONES,URINE NEGATIVE (NEGATIVE); LEUKOCYTE ESTERASE ,URINE NEGATIVE (NEGATIVE); NITRITES,URINE NEGATIVE (NEGATIVE); PROTEIN,URINE 3+ (NEGATIVE); UROBILINOGEN,URINE NORMAL (NORMAL)
[2023-06-01 04:10] LABS: APPEARANCE,URINE CLEAR (CLEAR); BACTERIA,URINE NEGATIVE /HPF (NEGATIVE); COLOR,URINE PALE YELLOW (YELLOW); RBC,URINE 0-2 /HPF (0-3); SQUAMOUS EPITHELIAL CELL,UR RARE /HPF (NEGATIVE)
[2023-06-01 04:37] LABS: BASOPHILS # (AUTO) 0.2 X10^3/uL (0.0-0.1); BASOPHILS % (AUTO) 1.7 % (0.2-1.0); EOSINOPHILS # (AUTO) 0.2 x10^3/uL (0.0-0.2); EOSINOPHILS % (AUTO) 1.2 % (0.9-2.9); HEMATOCRIT 25.1 % (42.0-54.0); LYMPHOCYTES # (AUTO) 0.7 X10^3/uL (1.3-2.9); LYMPHOCYTES % (AUTO) 5.1 % (21.0-51.0); MEAN CORPUSCULAR HEMOGLOBIN 22.3 pg (27.0-34.0); MEAN CORPUSCULAR HGB CONC 32.4 g/dL (33.0-35.0); MEAN CORPUSCULAR VOLUME 68.7 fL (80.0-100.0); MEAN PLATELET VOLUME 7.5 fL (7.4-11.0); MONOCYTES # (AUTO) 0.8 x10^3/uL (0.3-0.8); MONOCYTES % (AUTO) 6.4 % (0.0-13.0); NEUTROPHILS # (AUTO) 11.2 x10^3/uL (2.2-4.8); NEUTROPHILS % (AUTO) 85.6 % (42.0-75.0); PLATELET COUNT 432 X10^3/uL (150.0-450.0); RED BLOOD COUNT 3.65 X10^6/uL (4.7-6.0); RED CELL DISTRIBUTION WIDTH 25.3 % (11.6-16.5)
[2023-06-01 04:42] LABS: HEMOGLOBIN 8.1 g/dL (13.5-18.0)
[2023-06-01 04:53] LABS: ALBUMIN 1.6 g/dL (3.4-5.0); CALCIUM 8.7 mg/dL (8.5-10.1); CARBON DIOXIDE 32.5 mmol/L (21-32); COR CA(FOR HYPOALB) 10.6 mg/dL (8.5-10.1); CREATININE 2.42 mg/dL (0.70-1.30); POTASSIUM 3.7 mmol/L (3.5-5.1); TOTAL PROTEIN 7.8 g/dL (6.4-8.2)
[2023-06-01 05:06] LABS: PLATELET MORPHOLOGY COMMENT NORMAL (NORMAL)
[2023-06-01 05:07] LABS: ANISOCYTOSIS 3+; HYPOCHROMASIA 2+; MICROCYTOSIS 1+; POIKILOCYTOSIS PRESENT
[2023-06-01] MEDS ORDERED: CONSULT PHARMACY - POTASSIUM & MAGNESIUM XX SCH (06:00)
[2023-06-01] MEDS ORDERED: COMPAZINE PO PRN (07:40)
[2023-06-01] MEDS ORDERED: ZOFRAN TAB 4 MG PO PRN (07:40)
[2023-06-01] MEDS ORDERED: DUONEB 0.5 MG/3 MG (3 mL) NEB SCH (08:00)
[2023-06-01] MEDS ORDERED: TOPROL XL PO ONE (08:01)
--- NOTE | 2023-06-01 08:29 | DR.UPDATE ---
H&P Update H&P Reviewed: Yes Any changes to H&P?: Yes Changes noted:: IS A 67 YEAR OLD PATIENT OF OURS. HE HAS A PMH OF TIAs, PERIPHERAL ARTERY DISEASE, CORONARY ARTERY DISEASE, CHF, SC, HTN, CARDIAC STENTS, COPD, SLEEP APNEA, GERD, DM II, DIABETIC NEUROPATHY, ANEMIA, PAST HX OF COLON CANCER. SURGICAL HX INCLUDES: APPENDECTOMY, BOWEL RESECTION, MULTIPLE HERNIA REPAIRS, RIGHT FOOT SURGERY. PATIENT IS REPORTEDLY SCHEDULED FOR A RIGHT BELOW THE KNEE AMPUTATION ON SATURDAY WITH . HE PRESENTED TO THE HOSPITAL ON 05/31/23 FOR OUTPATIENT LABS. LABS REVEALED A CRITICALLY LOW HEMOGLOBIN OF 5.7, HCT 17.8. ADDITIONALLY, WBC WAS 13.5, SODIUM 132, BUN 39, CREATININE 2.76, GLUCOSE 216, ALK PHOS 192, ALBUMIN 1.7. OUTPATIENT CHEST XRAY REVEALED NO ACTIVE PULMONARY DISEASE. DECISION WAS MADE TO ADMIT PATIENT TO THE HOSPITAL FOR FURTHER EVALUATION AND TREATMENT OF ANEMIA, DEHYDRATION, ACUTE ON CHRONIC RENAL FAILURE, HYPOALBUMINEMIA. ON ADMISSION, HE WAS STARTED ON NORMAL SALINE AT 80 ML/HR, OTBS ACHS, HUMULIN R SLIDING SCALE, DUONEBS TID, PULMICORT NEBS BID. HIS HOME MEDICATIONS OF CARDIZEM, CYMBALTA, DURAGESIC PATCH, TOPROL XL, ZOFRAN PRN, ROXICODONE PRN, COMPAZINE PRN, AND CRESTOR WERE RESUMED. WE TYPE/SCREENED, CROSSMATCHED, AND TRANSFUSED TWO UNITS OF PACKED RED BLOOD CELLS AFTER ADMISSION. ON 06/01/23 MORNING LABS AT 03:45 REVEALED A HEMOGLOBIN OF 8.1, HCT 25.1. WE PLAN TO MONITOR H&H TODAY AND TRANSFUSE ADDITIONAL UNITS OF PACKED RED BLOOD CELLS IF NEEDED. TIME SPENT ON CLINICAL ASSESSMENT, REVIEWING LABS AND IMAGING, DECISION MAKING, AND DOCUMENTATION GREATER THAN 75 MINUTES. Patient was examined?: Yes Vital Signs: Temp Pulse Resp BP Pulse Ox O2 Del Method O2 Flow Rate 05/31/23 20:30 Nasal Cannula 2 06/01/23 04:00 98.9 F 94 H 20 151/68 95 Nasal Cannula 2 06/01/23 00:00 98.9 F 89 20 151/67 97 Nasal Cannula 2 05/31/23 19:00 Room Air 05/31/23 20:00 97.8 F 84 20 110/55 98 Nasal Cannula 2 05/31/23 16:40 20 05/31/23 16:00 97.5 F L 83 20 138/60 98 Nasal Cannula 2 05/31/23 14:02 Room Air 05/31/23 15:40 20 05/31/23 14:10 97.6 F 81 20 134/63 100 Nasal Cannula 2 FiO2 05/31/23 20:30 28 06/01/23 04:00 06/01/23 00:00 05/31/23 19:00 05/31/23 20:00 05/31/23 16:40 05/31/23 16:00 05/31/23 14:02 05/31/23 15:40 05/31/23 14:10
[2023-06-01] MEDS: TOPROL XL PO SCH (08:55)
[2023-06-01] MEDS: DURAGESIC 75 mcg/HR PATCH TD SCH (08:55)
[2023-06-01] MEDS: NS 1,000 ML IV 1,000 ML IV SCH ×2 (08:56→15:35)
[2023-06-01] MEDS: NICOTINE PATCH TD SCH (08:56)
[2023-06-01] MEDS: CARDIZEM CD 180 MG 24-HR PO SCH (08:56)
[2023-06-01] MEDS: MAG-OX TAB PO SCH ×2 (08:56→10:10)
[2023-06-01] MEDS: CHECK PATCH XX SCH ×2 (08:56→20:58)
[2023-06-01] MEDS: CYMBALTA PO SCH (08:56)
[2023-06-01] MEDS ORDERED: PULMICORT NEB TX 0.5 MG NEB SCH (09:00)
[2023-06-01] MEDS ORDERED: K-DUR TAB 20 MEQ PO SCH (09:00)
[2023-06-01 09:02] LABS: HEMATOCRIT 26.1 % (42.0-54.0); HEMOGLOBIN 8.4 g/dL (13.5-18.0)
[2023-06-01] MEDS: NovoLIN R (or HumuLIN R) SUBCUT PRN ×3 (11:35→21:00)
[2023-06-01 14:59] LABS: HEMATOCRIT 26.1 % (42.0-54.0); HEMOGLOBIN 8.4 g/dL (13.5-18.0)
[2023-06-01 20:15] LABS: HEMATOCRIT 23.6 % (42.0-54.0); HEMOGLOBIN 7.6 g/dL (13.5-18.0)
[2023-06-01] MEDS: CRESTOR TAB 10 MG PO SCH (20:56)
[2023-06-01] MEDS: ROXICODONE TAB 5 MG PO PRN (20:57)
[2023-06-01] MEDS: PEPCID TAB 40 MG PO SCH (20:57)
[2023-06-01] MEDS: PROTONIX INJ 40 MG VIAL IVP SCH (20:57)
[2023-06-01] MEDS: SNACK - Diabetic Appropriate PO SCH (20:58)
[2023-06-02 06:32] LABS: BASOPHILS % (AUTO) 0.3 % (0.2-1.0); EOSINOPHILS # (AUTO) 0.2 x10^3/uL (0.0-0.2); EOSINOPHILS % (AUTO) 1.5 % (0.9-2.9); HEMATOCRIT 25.9 % (42.0-54.0); HEMOGLOBIN 8.1 g/dL (13.5-18.0); LYMPHOCYTES # (AUTO) 0.5 X10^3/uL (1.3-2.9); LYMPHOCYTES % (AUTO) 3.3 % (21.0-51.0); MEAN CORPUSCULAR HEMOGLOBIN 21.8 pg (27.0-34.0); MEAN CORPUSCULAR HGB CONC 31.3 g/dL (33.0-35.0); MEAN CORPUSCULAR VOLUME 69.8 fL (80.0-100.0); MEAN PLATELET VOLUME 6.9 fL (7.4-11.0); MONOCYTES # (AUTO) 0.8 x10^3/uL (0.3-0.8); MONOCYTES % (AUTO) 5.6 % (0.0-13.0); NEUTROPHILS # (AUTO) 13.2 x10^3/uL (2.2-4.8); NEUTROPHILS % (AUTO) 89.3 % (42.0-75.0); PLATELET COUNT 367 X10^3/uL (150.0-450.0); RED BLOOD COUNT 3.72 X10^6/uL (4.7-6.0); RED CELL DISTRIBUTION WIDTH 24.5 % (11.6-16.5); WHITE BLOOD COUNT 14.7 X10^3/uL (3.6-10.0)
[2023-06-02 06:37] LABS: ALBUMIN 1.6 g/dL (3.4-5.0); CALCIUM 8.6 mg/dL (8.5-10.1); CARBON DIOXIDE 29.3 mmol/L (21-32); COR CA(FOR HYPOALB) 10.5 mg/dL (8.5-10.1); CREATININE 1.91 mg/dL (0.70-1.30); POTASSIUM 4.2 mmol/L (3.5-5.1); TOTAL PROTEIN 7.7 g/dL (6.4-8.2)
[2023-06-02 07:31] LABS: ANISOCYTOSIS 3+; HYPOCHROMASIA 1+; MICROCYTOSIS 1+; OVALOCYTES 1+; PLATELET MORPHOLOGY COMMENT NORMAL (NORMAL); STOMATOCYTES 1+; TARGET CELLS SLIGHT
[2023-06-02] MEDS ORDERED: TOPROL XL PO ONE (08:15)
[2023-06-02] MEDS: CARDIZEM CD 180 MG 24-HR PO SCH (08:25)
[2023-06-02] MEDS: CHECK PATCH XX SCH ×2 (08:25→21:32)
[2023-06-02] MEDS: TOPROL XL PO SCH (08:25)
[2023-06-02] MEDS: PROTONIX INJ 40 MG VIAL IVP SCH ×2 (08:26→21:27)
[2023-06-02] MEDS: CYMBALTA PO SCH (08:26)
[2023-06-02] MEDS: NICOTINE PATCH TD SCH (08:26)
[2023-06-02] MEDS: NS 1,000 ML IV 1,000 ML IV SCH ×2 (11:57→16:28)
[2023-06-02] MEDS ORDERED: NS 250 ML IV 250 ML IV ONE ×2 (12:21→19:09)
[2023-06-02] MEDS: MILK OF MAGNESIA PO PRN (12:54)
[2023-06-02] MEDS: NovoLIN R (or HumuLIN R) SUBCUT PRN ×2 (13:39→21:33)
--- NOTE | 2023-06-02 20:24 | PCM.PROG ---
Progress Note - Progress Note for Day of Date of Exam: 06/02/23 - Subjective Subjective: IS A 67 YEAR OLD PATIENT OF OURS. HE IS CURRENTLY OBSERVATION STATUS FOR TREATMENT OF SYMPTOMATIC ANEMIA. HE HAS A PMH OF TIAs, PERIPHERAL ARTERY DISEASE, CORONARY ARTERY DISEASE, CHF, DE, HTN, CARDIAC STENTS, COPD, SLEEP APNEA, GERD, DM II, DIABETIC NEUROPATHY, ANEMIA, PAST HX OF COLON CANCER. SURGICAL HX INCLUDES: APPENDECTOMY, BOWEL RESECTION, MULTIPLE HERNIA REPAIRS, RIGHT FOOT SURGERY. PATIENT IS SCHEDULED FOR A RIGHT BELOW THE KNEE AMPUTATION WITH TOMORROW. HE HAS RECEIVED TWO UNITS OF PACKED RED BLOOD CELLS SINCE ADMISSION. TODAY, HE IS ALERT AND ORIENTED, LYING IN BED ON MORNING ROUNDS. HE CONTINUES TO COMPLAIN OF GENERALIZED WEAKNESS THIS MORNING. HE ALSO COMPLAINS OF GENERALIZED PAIN. ON EXAMINATION, HEART IS REGULAR IN RATE AND RHYTHM. BILATERAL LUNGS ARE NOTED WITH DIMINISHED LUNG SOUNDS THROUGHOUT. ABDOMEN IS ROUND, SOFT, AND NON-TENDER WITH NORMAL BOWEL SOUNDS NOTED IN ALL QUADRANTS. THERE IS A DRESSING COVERING WOUND OF THE RIGHT HEEL. GOOD RANGE OF MOTION NOTED TO UPPER AND LOWER EXTREMITIES. HIS VITALS THIS MORNING WERE: 97.9-66-20-95%-128/60. LABS WERE OBTAINED. WBC 14.7, RBC 3.72, HGB 8.1, HCT 25.9, SODIUM 134, POTASSIUM 4.2, CHLORIDE 99, CARBON DIOXIDE 29.3, BUN 25, CREATININE 1.91, GLUCOSE 160, CALCIUM 8.6, TOTAL BILI 0.40, AST 20, ALT 20, ALK PHOS 199, TOTAL PROTEIN 7.7, ALBUMIN 1.6. HE IS CURRENTLY RECEIVING NORMAL SALINE AT 80 ML/HR, OTBS ACHS, HUMULIN R SLIDING SCALE, DUONEBS TID, PULMICORT NEBS BID. HIS HOME MEDICATIONS OF CARDIZEM, CYMBALTA, DURAGESIC PATCH, TOPROL XL, ZOFRAN PRN, ROXICODONE PRN, COMPAZINE PRN, AND CRESTOR WERE RESUMED. TODAY, WE WILL ADD ROCEPHIN 1G IV DAILY FOR LEUKOCYTOSIS. WE WILL TRANSFUSE TWO AD DITIONAL UNITS OF PACKED RED BLOOD CELLS TODAY. OTHERWISE, WE PLAN TO FOLLOW UP WITH AM LABS AND CONTINUE TO MONITOR. TIME SPENT ON CLINICAL ASSESSMENT, REVIEWING LABS AND IMAGING, DECISION MAKING, AND DOCUMENTATION GREATER THAN 45 MINUTES. - Past Medical Family Social History Past Med/Fam/Surg Hx: No changes since H&P Allergies: Allergies No Known Drug Allergies Allergy (Verified 05/31/23 15:36) - Review of Systems ROS: No change since H&P - Vital Signs and I&O's Vital Signs: Vital Signs Temperature 97.7 F Pulse Rate [Left Radial] 63 Respiratory Rate 20 Blood Pressure [Left Arm] 133/61 O2 Sat by Pulse Oximetry 93 Intake and Output: Intake & Output 05/31/23 06/01/23 06/02/23 06/03/23 11:59 11:59 11:59 11:59 Intake Total 1760 / 1760 4469 / 4469 980 / 980 Balance 1760 / 1760 4469 / 4469 980 / 980 - Physical Exam Oriented: Normal Eyes: Normal Ear: Normal Nose: Normal Throat: Normal Respiratory: Diminished Cardiovascular: Normal : Normal Auscultation: Bowel Sounds: Normal Palpation: Normal Tenderness: Normal Skin: Wound (RIGHT HEEL ) Musculoskeletal: Back:Lumbar Psychiatric: Normal Mood Description: Calm Affect: Normal Speech Pattern: Clear - Laboratory and Diagnostics Result Diagrams: 06/02/23 06:03 06/02/23 06:03 Labs: 06/01/23 03:45 Urine,Clean Catch Urine Culture - Final Laboratory WBC 14.7 X10^3/uL (3.6-10.0) H 06/02/23 06:03 RBC 3.72 X10^6/uL (4.7-6.0) L 06/02/23 06:03 Hgb 8.1 g/dL (13.5-18.0) L 06/02/23 06:03 Hct 25.9 % (42.0-54.0) L 06/02/23 06:03 MCV 69.8 fL (80.0-100.0) L 06/02/23 06:03 MCH 21.8 pg (27.0-34.0) L 06/02/23 06:03 MCHC 31.3 g/dL (33.0-35.0) L 06/02/23 06:03 RDW 24.5 % (11.6-16.5) H 06/02/23 06:03 Plt Count 367 X10^3/uL (150.0-450.0) 06/02/23 06:03 Plt Count Comment Adequate (ADEQUATE) 06/02/23 06:03 MPV 6.9 fL (7.4-11.0) L 06/02/23 06:03 Neut % (Auto) 89.3 % (42.0-75.0) H 06/02/23 06:03 Lymph % (Auto) 3.3 % (21.0-51.0) L 06/02/23 06:03 [place] % (Auto) 5.6 % (0.0-13.0) 06/02/23 06:03 Eos % (Auto) 1.5 % (0.9-2.9) 06/02/23 06:03 Baso % (Auto) 0.3 % (0.2-1.0) 06/02/23 06:03 Neut # (Auto) 13.2 x10^3/uL (2.2-4.8) H 06/02/23 06:03 Lymph # (Auto) 0.5 X10^3/uL (1.3-2.9) L 06/02/23 06:03 [place] # (Auto) 0.8 x10^3/uL (0.3-0.8) 06/02/23 06:03 Eos # (Auto) 0.2 x10^3/uL (0.0-0.2) 06/02/23 06:03 Baso # (Auto) 0.0 X10^3/uL (0.0-0.1) 06/02/23 06:03 Absolute Nucleated RBC 0.0 /100WBC 06/02/23 06:03 Plt Morphology Comment Normal (NORMAL) 06/02/23 06:03 RBC Morphology Abnormal (NORMAL) 06/02/23 06:03 Dimorphic RBCs Present 06/01/23 03:45 Hypochromasia 1+ A 06/02/23 06:03 Poikilocytosis Present 06/01/23 03:45 Anisocytosis 3+ A 06/02/23 06:03 Microcytosis 1+ A 06/02/23 06:03 Target Cells Slight A 06/02/23 06:03 Ovalocytes 1+ A 06/02/23 06:03 Stomatocytes 1+ A 06/02/23 06:03 Sodium 134 mmol/L (136-145) L 06/02/23 06:03 Corrected Sodium 135 mmol/L (136-145) L 06/02/23 06:03 Potassium 4.2 mmol/L (3.5-5.1) 06/02/23 06:03 Chloride 99 mmol/L (98-107) 06/02/23 06:03 Carbon Dioxide 29.3 mmol/L (21-32) 06/02/23 06:03 BUN 25 mg/dL (7-18) H 06/02/23 06:03 Creatinine 1.91 mg/dL (0.70-1.30) H 06/02/23 06:03 Est GFR (MDRD) Af Amer 45 (>60) L 06/02/23 06:03 Est GFR (MDRD) Non-Af 37 (>60) L 06/02/23 06:03 Glucose 160 mg/dL (65-99) H 06/02/23 06:03 POC Glucose (mg/dL) 139 mg/dL (65-99) H 06/02/23 18:00 Calcium 8.6 mg/dL (8.5-10.1) 06/02/23 06:03 Corrected Calcium 10.5 mg/dL (8.5-10.1) H 06/02/23 06:03 Magnesium 1.8 mg/dL (2.0-2.9) L 06/01/23 03:45 Total Bilirubin 0.40 mg/dL (0.2-1.0) 06/02/23 06:03 AST 20 Units/L (15-37) 06/02/23 06:03 ALT 20 Units/L (12-78) 06/02/23 06:03 Alkaline Phosphatase 199 Units/L (46-116) H 06/02/23 06:03 Total Protein 7.7 g/dL (6.4-8.2) 06/02/23 06:03 Albumin 1.6 g/dL (3.4-5.0) L 06/02/23 06:03 Globulin 6.1 g/dL (2.5-4.5) H 06/02/23 06:03 Albumin/Globulin Ratio 0.3 Ratio (1.1-2.1) L 06/02/23 06:03 Specimen Type Clean catch urine 06/01/23 03:45 Urine Color Pale yellow (YELLOW) 06/01/23 03:45 Urine Appearance Clear (CLEAR) 06/01/23 03:45 Urine pH 7.0 (5.0 - 8.0) 06/01/23 03:45 Ur Specific [place] 1.015 (1.000-1.030) 06/01/23 03:45 Urine Protein 3+ (NEGATIVE) 06/01/23 03:45 Urine Glucose (UA) 1+ (NEGATIVE) 06/01/23 03:45 Urine Ketones Negative (NEGATIVE) 06/01/23 03:45 Urine Blood 2+ (NEGATIVE) 06/01/23 03:45 Urine Nitrite Negative (NEGATIVE) 06/01/23 03:45 Urine Bilirubin Negative (NEGATIVE) 06/01/23 03:45 Urine Urobilinogen Normal (NORMAL) 06/01/23 03:45 Ur Leukocyte Esterase Negative (NEGATIVE) 06/01/23 03:45 Urine RBC 0-2 /HPF (0-3) 06/01/23 03:45 Urine WBC 0-2 /HPF (0-5) 06/01/23 03:45 Ur Squamous Epith Cells Rare /HPF (NEGATIVE) 06/01/23 03:45 Urine Bacteria Negative /HPF (NEGATIVE) 06/01/23 03:45 Ur Culture Indicated? Yes/culture set up 06/01/23 03:45 Blood Type A POSITIVE 05/31/23 14:26 Antibody Screen Negative 05/31/23 14:26 Crossmatch See Detail 05/31/23 14:26 - Plan (1) Symptomatic anemia Status: Acute Plan: TRANSFUSE PACKED RED BLOOD CELLS, NORMAL SALINE AT 80 ML/HR, ROCEPHIN 1G IV DAILY, OTBS ACHS, HUMULIN R SLIDING SCALE, DUONEBS TID, PULMICORT NEBS BID. R ESUME HOME MEDS (2) Leukocytosis Status: Acute Qualifiers: Leukocytosis type: unspecified Qualified Code(s): D72.829 - Elevated white blood cell count, unspecified (3) PVD (peripheral vascular disease) Status: Acute Plan: RIGHT BTK AMPUTATION TOMORROW (4) CAD (coronary artery disease) Status: Chronic Qualifiers: Coronary Disease-Associated Artery/Lesion type: [place] artery [place] vs. transplanted heart: [place] heart Associated angina: unspecified whether angina present Qualified Code(s): I25.10 - Atherosclerotic heart disease of [place] coronary artery without angina pectoris (5) COPD exacerbation Status: Acute Plan: NET [place], CONTINUE TO MONITOR (6) CHF (congestive heart failure) Status: Chronic Qualifiers: Heart failure type: unspecified Heart failure chronicity: chronic Qualifi ed Code(s): I50.9 - Heart failure, unspecified Plan: CONTINUE TO MONITOR (7) Hypertension Status: Chronic Qualifiers: Hypertension type: primary hypertension Qualified Code(s): I10 - Essential (primary) hypertension Plan: CONTINUE TOPROL XL (8) Diabetes mellitus, type 2 Status: Chronic Qualifiers: Diabetes mellitus long term care administrator insulin use: with long term care administrator use Diabetes mellitus complication status: without complication Qualified Code(s): E11.9 - Type 2 diabetes mellitus without complications; Z79.4 - intermediate school teacher (current) use of insulin Plan: OTBS ACHS, CONTINUE HUMULIN R SLIDING SCALE (9) Hyperlipidemia Status: Chronic Qualifiers: Hyperlipidemia type: mixed hyperlipidemia Plan: RESUME CRESTOR
[2023-06-02] MEDS: CRESTOR TAB 10 MG PO SCH (21:24)
[2023-06-02] MEDS: ROXICODONE TAB 5 MG PO PRN (21:25)
[2023-06-02] MEDS: ROCEPHIN VIAL 1 GRAM 1 G in NS 100 ML IV 100 ML IV SCH (21:26)
[2023-06-02] MEDS: PEPCID TAB 40 MG PO SCH (21:27)
[2023-06-02] MEDS: SNACK - Diabetic Appropriate PO SCH (21:32)
[2023-06-02 23:59] LABS: HEMOGLOBIN 8.6 g/dL (13.5-18.0)
[2023-06-03 00:01] LABS: HEMATOCRIT 26.6 % (42.0-54.0)
[2023-06-03 05:37] LABS: BASOPHILS # (AUTO) 0.1 X10^3/uL (0.0-0.1); BASOPHILS % (AUTO) 0.4 % (0.2-1.0); EOSINOPHILS # (AUTO) 0.1 x10^3/uL (0.0-0.2); EOSINOPHILS % (AUTO) 0.9 % (0.9-2.9); HEMOGLOBIN 9.1 g/dL (13.5-18.0); LYMPHOCYTES # (AUTO) 0.3 X10^3/uL (1.3-2.9); LYMPHOCYTES % (AUTO) 2.7 % (21.0-51.0); MEAN CORPUSCULAR HEMOGLOBIN 23.3 pg (27.0-34.0); MEAN CORPUSCULAR HGB CONC 32.4 g/dL (33.0-35.0); MEAN PLATELET VOLUME 7.8 fL (7.4-11.0); MONOCYTES # (AUTO) 0.9 x10^3/uL (0.3-0.8); MONOCYTES % (AUTO) 7.5 % (0.0-13.0); NEUTROPHILS # (AUTO) 10.8 x10^3/uL (2.2-4.8); NEUTROPHILS % (AUTO) 88.5 % (42.0-75.0); PLATELET COUNT 282 X10^3/uL (150.0-450.0); RED BLOOD COUNT 3.89 X10^6/uL (4.7-6.0); WHITE BLOOD COUNT 12.2 X10^3/uL (3.6-10.0)
[2023-06-03 05:45] LABS: ALBUMIN 1.6 g/dL (3.4-5.0); CALCIUM 8.8 mg/dL (8.5-10.1); CARBON DIOXIDE 29.6 mmol/L (21-32); COR CA(FOR HYPOALB) 10.7 mg/dL (8.5-10.1); CREATININE 1.93 mg/dL (0.70-1.30); POTASSIUM 4.4 mmol/L (3.5-5.1); TOTAL PROTEIN 7.7 g/dL (6.4-8.2)
[2023-06-03 05:46] LABS: HYPOCHROMASIA 1+; PLATELET MORPHOLOGY COMMENT NORMAL (NORMAL)
[2023-06-03 05:47] LABS: ANISOCYTOSIS 2+; MICROCYTOSIS SLIGHT; OVALOCYTES PRESENT; STOMATOCYTES PRESENT
[2023-06-03] MEDS ORDERED: TOPROL XL PO ONE (08:05)
[2023-06-03] MEDS: CYMBALTA PO SCH (08:38)
[2023-06-03] MEDS: CARDIZEM CD 180 MG 24-HR PO SCH (08:38)
[2023-06-03] MEDS: PROTONIX INJ 40 MG VIAL IVP SCH ×2 (08:39→20:30)
[2023-06-03] MEDS: NICOTINE PATCH TD SCH (08:39)
[2023-06-03] MEDS: TOPROL XL PO SCH (08:39)
[2023-06-03] MEDS: CHECK PATCH XX SCH ×2 (08:40→20:39)
--- NOTE | 2023-06-03 11:08 | PCM.PROG ---
Progress Note - Progress Note for Day of Date of Exam: 06/03/23 - Subjective Subjective: IS A 67 YEAR OLD PATIENT OF OURS. HE IS CURRENTLY OBSERVATION STATUS FOR TREATMENT OF SYMPTOMATIC ANEMIA AND LEUKOCYTOSIS. HE HAS A PMH OF TIAs, PERIPHERAL ARTERY DISEASE, CORONARY ARTERY DISEASE, CHF, MS, HTN, CARDIAC STENTS, COPD, SLEEP APNEA, GERD, DM II, DIABETIC NEUROPATHY, ANEMIA, PAST HX OF COLON CANCER. SURGICAL HX INCLUDES: APPENDECTOMY, BOWEL RESECTION, MULTIPLE HERNIA REPAIRS, RIGHT FOOT SURGERY. PATIENT IS SCHEDULED FOR A RIGHT BELOW THE KNEE AMPUTATION WITH THIS MORNING. HE HAS RECEIVED FOUR UNITS OF PACKED RED BLOOD CELLS SINCE ADMISSION. TODAY, HE IS ALERT AND ORIENTED, LYING IN BED ON MORNING ROUNDS. HE DENIES CURRENT COMPLAINTS THIS MORNING AND RE PORTS IMPROVEMENT IN WEAKNESS SINCE RECEIVING BLOOD. ON EXAMINATION, HEART IS REGULAR IN RATE AND RHYTHM. BILATERAL LUNGS ARE NOTED WITH DIMINISHED LUNG SOUNDS THROUGHOUT. ABDOMEN IS ROUND, SOFT, AND NON-TENDER WITH NORMAL BOWEL SOUNDS NOTED IN ALL QUADRANTS. THERE IS A DRESSING COVERING WOUND OF THE RIGHT HEEL. GOOD RANGE OF MOTION NOTED TO UPPER AND LOWER EXTREMITIES. HIS VITALS THIS MORNING WERE: 97.5-62-20-94%-141/65. LABS WERE OBTAINED. WBC 12.2, RBC 3.89, HGB 9.1, HCT 28.0, PLT COUNT 282, SODIUM 136, POTASSIUM 4.4, CHLORIDE 101, BUN 28, CREATININE 1.93, GLUCOSE 156, CALCIUM 8.8, TOTAL BILI 0.80, AST 18, ALT 21, ALK PHOS 242, TOTAL PROTEIN 7.7, ALBUMIN 1.6. HE IS CURRENTLY RECEIVING NORMAL SALINE AT 80 ML/HR, ROCEPHIN 1G IV DAILY, OTBS ACHS, HUMULIN R SLIDING SCALE, DUONEBS TID, PULMICORT NEBS BID. HIS HOME MEDICATIONS OF CARDIZEM, CYMBALTA, DURAGESIC PATCH, TOPROL XL, ZOFRAN PRN, ROXICODONE PRN, COMPAZINE PRN, AND CRESTOR WERE RESUMED. WE WILL CONTINUE WITH CURRENT PLAN OF CARE TODAY. , GENERAL AND VASCULAR SURGEON, WILL TAKE PATIENT TO THE OR THIS MORNING FOR RIGHT BELOW THE KNEE AMPUTATION. OTHERWISE, WE PLAN TO FOLLOW UP WITH AM LABS AND CONTINUE TO MONITOR. TIME SPENT ON CLINICAL ASSESSMENT, REVIEWING LABS AND IMAGING, DECISION MAKING, AND DOCUMENTATION GREATER THAN 45 MINUTES. - Past Medical Family Social History Past Med/Fam/Surg Hx: No changes since H&P Allergies: Allergies No Known Drug Allergies Allergy (Verified 05/31/23 15:36) - Review of Systems ROS: No change since H&P - Vital Signs and I&O's Vital Signs: Vital Signs Temperature 97.5 F Temperature 98.3 F Pulse Rate [Left Radial] 62 Pulse Rate [Left Radial] 67 Respiratory Rate 20 Respiratory Rate 20 Blood Pressure [Left Arm] 141/65 Blood Pressure [Left Arm] 123/63 O2 Sat by Pulse Oximetry 94 O2 Sat by Pulse Oximetry 95 Intake and Output: Intake & Output 05/31/23 06/01/23 06/02/23 06/03/23 11:59 11:59 11:59 11:59 Intake Total 1760 / 1760 4469 / 4469 1520 / 1520 Balance 1760 / 1760 4469 / 4469 1520 / 1520 - Physical Exam Oriented: Normal Eyes: Normal Ear: Normal Nose: Normal Throat: Normal Respiratory: Diminished Cardiovascular: Normal : Normal Auscultation: Bowel Sounds: Normal Palpation: Normal Tenderness: Normal Skin: Wound (RIGHT HEEL ) Musculoskeletal: Back:Lumbar Psychiatric: Normal Mood Description: Calm Affect: Normal Speech Pattern: Clear - Laboratory and Diagnostics Result Diagrams: 06/03/23 04:36 06/03/23 04:36 Labs: 06/01/23 03:45 Urine,Clean Catch Urine Culture - Final Laboratory WBC 12.2 X10^3/uL (3.6-10.0) H 06/03/23 04:36 RBC 3.89 X10^6/uL (4.7-6.0) L 06/03/23 04:36 Hgb 9.1 g/dL (13.5-18.0) L 06/03/23 04:36 Hct 28.0 % (42.0-54.0) L 06/03/23 04:36 MCV 72.0 fL (80.0-100.0) L 06/03/23 04:36 MCH 23.3 pg (27.0-34.0) L 06/03/23 04:36 MCHC 32.4 g/dL (33.0-35.0) L 06/03/23 04:36 RDW 24.0 % (11.6-16.5) H 06/03/23 04:36 Plt Count 282 X10^3/uL (150.0-450.0) 06/03/23 04:36 Plt Count Comment Adequate (ADEQUATE) 06/03/23 04:36 MPV 7.8 fL (7.4-11.0) 06/03/23 04:36 Neut % (Auto) 88.5 % (42.0-75.0) H 06/03/23 04:36 Lymph % (Auto) 2.7 % (21.0-51.0) L 06/03/23 04:36 [place] % (Auto) 7.5 % (0.0-13.0) 06/03/23 04:36 Eos % (Auto) 0.9 % (0.9-2.9) 06/03/23 04:36 Baso % (Auto) 0.4 % (0.2-1.0) 06/03/23 04:36 Neut # (Auto) 10.8 x10^3/uL (2.2-4.8) H 06/03/23 04:36 Lymph # (Auto) 0.3 X10^3/uL (1.3-2.9) L 06/03/23 04:36 [place] # (Auto) 0.9 x10^3/uL (0.3-0.8) H 06/03/23 04:36 Eos # (Auto) 0.1 x10^3/uL (0.0-0.2) 06/03/23 04:36 Baso # (Auto) 0.1 X10^3/uL (0.0-0.1) 06/03/23 04:36 Absolute Nucleated RBC 0.0 /100WBC 06/03/23 04:36 Plt Morphology Comment Normal (NORMAL) 06/03/23 04:36 RBC Morphology Abnormal (NORMAL) 06/03/23 04:36 Dimorphic RBCs Present 06/01/23 03:45 Hypochromasia 1+ A 06/03/23 04:36 Poikilocytosis Present 06/01/23 03:45 Anisocytosis 2+ A 06/03/23 04:36 Microcytosis Slight A 06/03/23 04:36 Target Cells Slight A 06/02/23 06:03 Ovalocytes Present 06/03/23 04:36 Stomatocytes Present 06/03/23 04:36 Sodium 136 mmol/L (136-145) 06/03/23 04:36 Corrected Sodium 137 mmol/L (136-145) 06/03/23 04:36 Potassium 4.4 mmol/L (3.5-5.1) 06/03/23 04:36 Chloride 101 mmol/L (98-107) 06/03/23 04:36 Carbon Dioxide 29.6 mmol/L (21-32) 06/03/23 04:36 BUN 28 mg/dL (7-18) H 06/03/23 04:36 Creatinine 1.93 mg/dL (0.70-1.30) H 06/03/23 04:36 Est GFR (MDRD) Af Amer 45 (>60) L 06/03/23 04:36 Est GFR (MDRD) Non-Af 37 (>60) L 06/03/23 04:36 Glucose 156 mg/dL (65-99) H 06/03/23 04:36 POC Glucose (mg/dL) 153 mg/dL (65-99) H 06/03/23 05:12 Calcium 8.8 mg/dL (8.5-10.1) 06/03/23 04:36 Corrected Calcium 10.7 mg/dL (8.5-10.1) H 06/03/23 04:36 Magnesium 1.8 mg/dL (2.0-2.9) L 06/01/23 03:45 Total Bilirubin 0.80 mg/dL (0.2-1.0) 06/03/23 04:36 AST 18 Units/L (15-37) 06/03/23 04:36 ALT 21 Units/L (12-78) 06/03/23 04:36 Alkaline Phosphatase 242 Units/L (46-116) H 06/03/23 04:36 Total Protein 7.7 g/dL (6.4-8.2) 06/03/23 04:36 Albumin 1.6 g/dL (3.4-5.0) L 06/03/23 04:36 Globulin 6.1 g/dL (2.5-4.5) H 06/03/23 04:36 Albumin/Globulin Ratio 0.3 Ratio (1.1-2.1) L 06/03/23 04:36 Specimen Type Clean catch urine 06/01/23 03:45 Urine Color Pale yellow (YELLOW) 06/01/23 03:45 Urine Appearance Clear (CLEAR) 06/01/23 03:45 Urine pH 7.0 (5.0 - 8.0) 06/01/23 03:45 Ur Specific [place] 1.015 (1.000-1.030) 06/01/23 03:45 Urine Protein 3+ (NEGATIVE) 06/01/23 03:45 Urine Glucose (UA) 1+ (NEGATIVE) 06/01/23 03:45 Urine Ketones Negative (NEGATIVE) 06/01/23 03:45 Urine Blood 2+ (NEGATIVE) 06/01/23 03:45 Urine Nitrite Negative (NEGATIVE) 06/01/23 03:45 Urine Bilirubin Negative (NEGATIVE) 06/01/23 03:45 Urine Urobilinogen Normal (NORMAL) 06/01/23 03:45 Ur Leukocyte Esterase Negative (NEGATIVE) 06/01/23 03:45 Urine RBC 0-2 /HPF (0-3) 06/01/23 03:45 Urine WBC 0-2 /HPF (0-5) 06/01/23 03:45 Ur Squamous Epith Cells Rare /HPF (NEGATIVE) 06/01/23 03:45 Urine Bacteria Negative /HPF (NEGATIVE) 06/01/23 03:45 Ur Culture Indicated? Yes/culture set up 06/01/23 03:45 Blood Type A POSITIVE 05/31/23 14:26 Antibody Screen Negative 05/31/23 14:26 Crossmatch See Detail 05/31/23 14:26 - Plan (1) Symptomatic anemia Status: Acute Plan: NORMAL SALINE AT 80 ML/HR, ROCEPHIN 1G IV DAILY, OTBS ACHS, HUMULIN R SLIDING SCALE, DUONEBS TID, PULMICORT NEBS BID. RESUME HOME MEDS (2) Leukocytosis Status: Acute Qualifiers: Leukocytosis type: unspecified Qualified Code(s): D72.829 - Elevated white blood cell count, unspecified (3) PVD (peripheral vascular disease) Status: Acute Plan: RIGHT BTK AMPUTATION TODAY (4) CAD (coronary artery disease) Status: Chronic Qualifiers: Coronary Disease-Associated Artery/Lesion type: [place] artery [place] vs. transplanted heart: [place] heart Associated angina: unspecified whether angina present Qualified Code(s): I25.10 - Atherosclerotic heart disease of [place] coronary artery without angina pectoris (5) COPD exacerbation Status: Acute Plan: NET TX, CONTINUE TO MONITOR (6) CHF (congestive heart failure) Status: Chronic Qualifiers: Heart failure type: unspecified Heart failure chronicity: chronic Qualified Code(s): I50.9 - Heart failure, unspecified Plan: CONTINUE TO MONITOR (7) Hypertension Status: Chronic Qualifiers: Hypertension type: primary hypertension Qualified Code(s): I10 - Essential (primary) hypertension Plan: CONTINUE TOPROL XL (8) Diabetes mellitus, type 2 Status: Chronic Qualifiers: Diabetes mellitus intermediate card tender insulin use: with mcc use Diabetes mellitus complication status: without complication Qualified Code(s): E11.9 - Type 2 diabetes mellitus without complications; Z79.4 - joint terminal attack controller (current) use of insulin Plan: OTBS ACHS, CONTINUE HUMULIN R SLIDING SCALE (9) Hyperlipidemia Status: Chronic Qualifiers: Hyperlipidemia type: mixed hyperlipidemia Plan: RESUME CRESTOR
[2023-06-03] MEDS ORDERED: NS 1,000 ML IV 1,000 ML ONE (11:48)
[2023-06-03] MEDS ORDERED: ANCEF VIAL 1 GRAM ONE ×2 (11:48→11:51)
[2023-06-03] MEDS ORDERED: NS 100 ML IV 100 ML ONE (11:48)
[2023-06-03] MEDS ORDERED: DIPRIVAN VIAL 20 ML ONE (11:57)
[2023-06-03] MEDS ORDERED: VERSED ONE (11:57)
[2023-06-03] MEDS ORDERED: PEPCID 20 MG VIAL ONE (11:57)
[2023-06-03] MEDS ORDERED: FENTANYL VIAL INJ 100 mcg ONE (11:57)
[2023-06-03] MEDS ORDERED: ULTANE GAS IN ONE (12:03)
[2023-06-03] MEDS: NS 1,000 ML IV 1,000 ML IV SCH ×3 (12:28→20:01)
[2023-06-03] MEDS ORDERED: ZOFRAN INJ 4 MG VIAL ONE (12:40)
--- NOTE | 2023-06-03 13:15 | OR.IMMED ---
IMMEDIATE POST-OP NOTE Immediate Post-Op Note Date of surgery/procedure: 06/03/23 Pre-Op Diagnosis: Chronic wound right heel with osteomyelitis ,recent admission with anemia Post-Op Diagnosis: same Procedure: right below knee amputation Description of Procedure: dictated Surgeon/Fireboat Operator: Pierre Findings: as above, severely edematous right leg. Specimens Removed: Right leg below knee specimen Estimated Blood Loss: 500cc Complications: none Progress Notes: to PACU after extubation of the LMA, Will check CBC and give blood as necessary. Patient admitted with anemia. History of colon cancer diagnosed in 2008 and has not had colonoscopy since then. Has not had routine follow-up after the colon cancer and chemotherapy. Will clear liquid diet and bowel prep tonight and upper and lower endoscopy tomorrow
[2023-06-03] MEDS ORDERED: DILAUDID INJ ONE ×2 (13:17→13:24)
[2023-06-03] MEDS ORDERED: BARHEMSYS INJ IVP PRN (13:20)
[2023-06-03] MEDS ORDERED: REGLAN INJ 10 MG VIAL IVP PRN (13:20)
[2023-06-03] MEDS ORDERED: ZOFRAN INJ 4 MG VIAL IVP PRN (13:20)
[2023-06-03] MEDS: DILAUDID INJ IVP PRN ×6 (13:20→20:32)
[2023-06-03] MEDS ORDERED: BENADRYL INJ 50 MG VIAL IVP PRN (13:20)
[2023-06-03 13:37] LABS: BASOPHILS # (AUTO) 0.1 X10^3/uL (0.0-0.1); BASOPHILS % (AUTO) 0.5 % (0.2-1.0); EOSINOPHILS # (AUTO) 0.1 x10^3/uL (0.0-0.2); EOSINOPHILS % (AUTO) 0.7 % (0.9-2.9); HEMATOCRIT 25.7 % (42.0-54.0); HEMOGLOBIN 8.1 g/dL (13.5-18.0); LYMPHOCYTES # (AUTO) 0.5 X10^3/uL (1.3-2.9); MEAN CORPUSCULAR HEMOGLOBIN 22.8 pg (27.0-34.0); MEAN CORPUSCULAR HGB CONC 31.5 g/dL (33.0-35.0); MEAN CORPUSCULAR VOLUME 72.6 fL (80.0-100.0); MONOCYTES # (AUTO) 1.3 x10^3/uL (0.3-0.8); MONOCYTES % (AUTO) 8.5 % (0.0-13.0); NEUTROPHILS # (AUTO) 13.5 x10^3/uL (2.2-4.8); NEUTROPHILS % (AUTO) 87.3 % (42.0-75.0); PLATELET COUNT 281 X10^3/uL (150.0-450.0); RED BLOOD COUNT 3.54 X10^6/uL (4.7-6.0); RED CELL DISTRIBUTION WIDTH 24.4 % (11.6-16.5); WHITE BLOOD COUNT 15.5 X10^3/uL (3.6-10.0)
[2023-06-03 13:53] LABS: PLATELET MORPHOLOGY COMMENT NORMAL (NORMAL)
[2023-06-03 13:54] LABS: ANISOCYTOSIS 3+; HYPOCHROMASIA 1+; MICROCYTOSIS SLIGHT
[2023-06-03] MEDS: NovoLIN R (or HumuLIN R) SUBCUT PRN ×2 (17:04→21:09)
[2023-06-03] MEDS: GOLYTELY or GAVILYTE or Equivalent PO SCH ×2 (17:05→22:52)
[2023-06-03] MEDS: MILK OF MAGNESIA PO PRN (20:29)
[2023-06-03] MEDS: PEPCID TAB 40 MG PO SCH (20:30)
[2023-06-03] MEDS: ROCEPHIN VIAL 1 GRAM 1 G in NS 100 ML IV 100 ML IV SCH (20:30)
[2023-06-03] MEDS: CRESTOR TAB 10 MG PO SCH (20:30)
[2023-06-03] MEDS: SNACK - Diabetic Appropriate PO SCH (20:31)
--- NOTE | 2023-06-03 22:46 | NOTE.SOAP ---
Soap Note Note for Day of Date of Exam: 06/03/23 Subjective Data Subjective Data: Patient s/o right BKA. Post Hgb=8.1 Stable. Pain controlled. With recent severe anemia and history of colon cancer i was planning bowel prep and EGD and colonoscopy tomorrow. Patient refuses endoscopy. [facility] is [facility] to [facility]. Objective Data Temperature: 97.9 F Pulse Rate: 103 Respiratory Rate: 22 Blood Pressure: 129/60 O2 Sat by Pulse Oximetry: 92 Objective Data: Dressing intact right leg . Hgb=8.1. No bloody drainage. Assessment Assessment: 1) OSTEOMYELITIS RIGHT FOOT 2) SEVERE ANEMIA , HISTORY OF COLON CANCER S/P RESECTION FOLLOWED BY CHEMOTHERAPY IN 2008 Plan Plan: PATIENT HAS REFUSED ENDOSCOPY FURTHER W/U OF HIS ANEMIA. WILL OBTAIN MANJU-TECH DEVICE TO HELP SHRINK RIGHT BELOW KNEE STUMP AND MAINTAIN EXTENSION.
[2023-06-04] MEDS: DILAUDID INJ IVP PRN ×3 (02:39→15:31)
[2023-06-04 05:05] LABS: BASOPHILS % (AUTO) 0.3 % (0.2-1.0); EOSINOPHILS # (AUTO) 0.1 x10^3/uL (0.0-0.2); EOSINOPHILS % (AUTO) 0.6 % (0.9-2.9); HEMATOCRIT 22.2 % (42.0-54.0); HEMOGLOBIN 7.1 g/dL (13.5-18.0); LYMPHOCYTES # (AUTO) 0.6 X10^3/uL (1.3-2.9); LYMPHOCYTES % (AUTO) 4.5 % (21.0-51.0); MEAN CORPUSCULAR HEMOGLOBIN 22.9 pg (27.0-34.0); MEAN CORPUSCULAR VOLUME 71.5 fL (80.0-100.0); MEAN PLATELET VOLUME 7.3 fL (7.4-11.0); MONOCYTES # (AUTO) 0.7 x10^3/uL (0.3-0.8); MONOCYTES % (AUTO) 5.4 % (0.0-13.0); NEUTROPHILS # (AUTO) 11.5 x10^3/uL (2.2-4.8); NEUTROPHILS % (AUTO) 89.2 % (42.0-75.0); PLATELET COUNT 273 X10^3/uL (150.0-450.0); RED CELL DISTRIBUTION WIDTH 24.5 % (11.6-16.5); WHITE BLOOD COUNT 12.9 X10^3/uL (3.6-10.0)
[2023-06-04 05:12] LABS: CALCIUM 8.2 mg/dL (8.5-10.1); CARBON DIOXIDE 31.6 mmol/L (21-32); CREATININE 1.87 mg/dL (0.70-1.30); MAGNESIUM 2.6 mg/dL (2.0-2.9); POTASSIUM 4.5 mmol/L (3.5-5.1)
[2023-06-04] MEDS: ROXICODONE TAB 5 MG PO PRN ×2 (05:28→18:17)
[2023-06-04 05:33] LABS: ANISOCYTOSIS 3+; HYPOCHROMASIA 1+; MICROCYTOSIS SLIGHT; OVALOCYTES PRESENT; PLATELET MORPHOLOGY COMMENT NORMAL (NORMAL)
[2023-06-04] MEDS: NS 1,000 ML IV 1,000 ML IV SCH ×3 (05:40→20:46)
[2023-06-04] MEDS ORDERED: TOPROL XL PO ONE (08:12)
[2023-06-04] MEDS: DURAGESIC 75 mcg/HR PATCH TD SCH (08:32)
[2023-06-04] MEDS: TOPROL XL PO SCH (08:33)
[2023-06-04] MEDS: CARDIZEM CD 180 MG 24-HR PO SCH (08:34)
[2023-06-04] MEDS: CYMBALTA PO SCH (08:34)
[2023-06-04] MEDS: PROTONIX INJ 40 MG VIAL IVP SCH ×2 (08:35→21:11)
[2023-06-04] MEDS: NICOTINE PATCH TD SCH (08:35)
[2023-06-04] MEDS: CHECK PATCH XX SCH ×2 (08:36→20:46)
[2023-06-04] MEDS ORDERED: PATIENT'S HOME MEDICATION INH SCH (09:00)
[2023-06-04] MEDS: PATIENT'S HOME MEDICATION PO SCH (09:38)
--- NOTE | 2023-06-04 12:01 | PCM.PROG ---
Progress Note - Progress Note for Day of Date of Exam: 06/04/23 - Subjective Subjective: IS A 67 YEAR OLD PATIENT OF OURS. HE IS CURRENTLY OBSERVATION STATUS FOR TREATMENT OF SYMPTOMATIC ANEMIA AND LEUKOCYTOSIS. HE HAS A PMH OF TIAs, PERIPHERAL ARTERY DISEASE, CORONARY ARTERY DISEASE, CHF, [place], HTN, CARDIAC STENTS, COPD, SLEEP APNEA, GERD, DM II, DIABETIC NEUROPATHY, ANEMIA, PAST HX OF COLON CANCER. SURGICAL HX INCLUDES: APPENDECTOMY, BOWEL RESECTION, MULTIPLE HERNIA REPAIRS, RIGHT FOOT SURGERY. PATIENT ALSO HAD A CHRONIC WOUND TO THE RIGHT HEEL WITH OSTEOMYELITIS AND IS DAY 1 STATUS POST RIGHT BTK AMPUTATION. HE HAS RECEIVED FOUR UNITS OF PACKED RED BLOOD CELLS SINCE ADMISSION. TODAY, HE IS ALERT AND ORIENTED, LYING IN BED ON MORNING ROUNDS. HE DENIES CURRENT C OMPLAINTS THIS MORNING AND REPORTS IMPROVEMENT IN WEAKNESS SINCE RECEIVING BLOOD. ON EXAMINATION, HEART IS REGULAR IN RATE AND RHYTHM. BILATERAL LUNGS ARE NOTED WITH DIMINISHED LUNG SOUNDS THROUGHOUT. ABDOMEN IS ROUND, SOFT, AND NON- TENDER WITH NORMAL BOWEL SOUNDS NOTED IN ALL QUADRANTS. THERE IS A SURGICAL DRESSING TO THE RIGHT STUMP. GOOD RANGE OF MOTION NOTED TO UPPER AND LOWER EXTREMITIES. HIS VITALS THIS MORNING WERE: 97.8-84-20-98%-145/64. HE IS CURRENTLY ON OXYGEN VIA NASAL CANNULA AT 3-4 LPM. LABS WERE OBTAINED. WBC 12.9, RBC 3.10, HGB 7.1, HCT 22.2, PLT COUNT 273, SODIUM 137, POTASSIUM 4.5, CHLORIDE 104, CARBON DIOXIDE 31.6, BUN 28, CREATININE 1.87, GLUCOSE 193, CALCIUM 8.2, MAGNESIUM 2.6. HE IS CURRENTLY RECEIVING NORMAL SALINE AT 80 ML/HR, ROCEPHIN 1G IV DAILY, OTBS ACHS, HUMULIN R SLIDING SCALE, DUONEBS TID, PULMICORT NEBS BID, DILAUDID 1MG IV Q3H PRN, . HIS HOME MEDICATIONS OF CARDIZEM, CYMBALTA, DURAGESIC PATCH, TOPROL XL, ZOFRAN PRN, ROXICODONE PRN, COMPAZINE PRN, AND CRESTOR WERE RESUMED. WE WILL CONTINUE WITH CURRENT PLAN OF CARE TODAY. , GENERAL AND VASCULAR SURGEON, WILL CONTINUE TO FOLLOW PATIENT. OTHERWISE, WE PLAN TO FOLLOW UP WITH AM LABS AND CONTINUE TO MONITOR. TIME SPENT ON CLINICAL ASSESSMENT, REVIEWING LABS AND IMAGING, DECISION MAKING, AND DOCUMENTATION GREATER THAN 45 MINUTES. - Past Medical Family Social History Past Med/Fam/Surg Hx: No changes since H&P Allergies: Allergies No Known Drug Allergies Allergy (Verified 05/31/23 15:36) - Review of Systems ROS: No change since H&P - Vital Signs and I&O's Vital Signs: Vital Signs Temperature 97.7 F Temperature 97.8 F Pulse Rate [Left Radial] 84 Pulse Rate [Left Radial] 84 Respiratory Rate 18 Respiratory Rate 20 Respiratory Rate 18 Respiratory Rate 18 Respiratory Rate 20 Respiratory Rate 20 Blood Pressure [Left Arm] 127/58 Blood Pressure [Left Arm] 145/64 O2 Sat by Pulse Oximetry 91 O2 Sat by Pulse Oximetry 98 Intake and Output: Intake & Output 06/02/23 06/03/23 06/04/23 06/05/23 11:59 11:59 11:59 11:59 Intake Total 4469 / 4469 1520 / 1520 6226 / 6226 Output Total 1500 / 1500 Balance 4469 / 4469 1520 / 1520 4726 / 4726 - Physical Exam Oriented: Normal Eyes: Normal Ear: Normal Nose: Normal Throat: Normal Respiratory: Diminished Cardiovascular: Normal : Normal Auscultation: Bowel Sounds: Normal Palpation: Normal Tenderness: Normal Skin: Wound (RIGHT BTK AMPUTATION ) Musculoskeletal: Back:Lumbar Psychiatric: Normal Mood Description: Calm Affect: Normal Speech Pattern: Clear - Laboratory and Diagnostics Result Diagrams: 06/04/23 04:40 06/04/23 04:40 Labs: 06/01/23 03:45 Urine,Clean Catch Urine Culture - Final Laboratory WBC 12.9 X10^3/uL (3.6-10.0) H 06/04/23 04:40 RBC 3.10 X10^6/uL (4.7-6.0) L 06/04/23 04:40 Hgb 7.1 g/dL (13.5-18.0) L 06/04/23 04:40 Hct 22.2 % (42.0-54.0) L 06/04/23 04:40 MCV 71.5 fL (80.0-100.0) L 06/04/23 04:40 MCH 22.9 pg (27.0-34.0) L 06/04/23 04:40 MCHC 32.0 g/dL (33.0-35.0) L 06/04/23 04:40 RDW 24.5 % (11.6-16.5) H 06/04/23 04:40 Plt Count 273 X10^3/uL (150.0-450.0) 06/04/23 04:40 Plt Count Comment Adequate (ADEQUATE) 06/04/23 04:40 MPV 7.3 fL (7.4-11.0) L 06/04/23 04:40 Neut % (Auto) 89.2 % (42.0-75.0) H 06/04/23 04:40 Lymph % (Auto) 4.5 % (21.0-51.0) L 06/04/23 04:40 [place] % (Auto) 5.4 % (0.0-13.0) 06/04/23 04:40 Eos % (Auto) 0.6 % (0.9-2.9) L 06/04/23 04:40 Baso % (Auto) 0.3 % (0.2-1.0) 06/04/23 04:40 Neut # (Auto) 11.5 x10^3/uL (2.2-4.8) H 06/04/23 04:40 Lymph # (Auto) 0.6 X10^3/uL (1.3-2.9) L 06/04/23 04:40 [place] # (Auto) 0.7 x10^3/uL (0.3-0.8) 06/04/23 04:40 Eos # (Auto) 0.1 x10^3/uL (0.0-0.2) 06/04/23 04:40 Baso # (Auto) 0.0 X10^3/uL (0.0-0.1) 06/04/23 04:40 Absolute Nucleated RBC 0.0 /100WBC 06/04/23 04:40 Plt Morphology Comment Normal (NORMAL) 06/04/23 04:40 RBC Morphology Abnormal (NORMAL) 06/04/23 04:40 Dimorphic RBCs Present 06/01/23 03:45 Hypochromasia 1+ A 06/04/23 04:40 Poikilocytosis Present 06/01/23 03:45 Anisocytosis 3+ A 06/04/23 04:40 Microcytosis Slight A 06/04/23 04:40 Target Cells Slight A 06/02/23 06:03 Ovalocytes Present 06/04/23 04:40 Stomatocytes Present 06/03/23 04:36 Sodium 137 mmol/L (136-145) 06/04/23 04:40 Corrected Sodium 139 mmol/L (136-145) 06/04/23 04:40 Potassium 4.5 mmol/L (3.5-5.1) 06/04/23 04:40 Chloride 104 mmol/L (98-107) 06/04/23 04:40 Carbon Dioxide 31.6 mmol/L (21-32) 06/04/23 04:40 BUN 28 mg/dL (7-18) H 06/04/23 04:40 Creatinine 1.87 mg/dL (0.70-1.30) H 06/04/23 04:40 Est GFR (MDRD) Af Amer 46 (>60) L 06/04/23 04:40 Est GFR (MDRD) Non-Af 38 (>60) L 06/04/23 04:40 Glucose 193 mg/dL (65-99) H 06/04/23 04:40 POC Glucose (mg/dL) 190 mg/dL (65-99) H 06/04/23 11:19 Calcium 8.2 mg/dL (8.5-10.1) L 06/04/23 04:40 Corrected Calcium 10.7 mg/dL (8.5-10.1) H 06/03/23 04:36 Magnesium 2.6 mg/dL (2.0-2.9) 06/04/23 04:40 Total Bilirubin 0.80 mg/dL (0.2-1.0) 06/03/23 04:36 AST 18 Units/L (15-37) 06/03/23 04:36 ALT 21 Units/L (12-78) 06/03/23 04:36 Alkaline Phosphatase 242 Units/L (46-116) H 06/03/23 04:36 Total Protein 7.7 g/dL (6.4-8.2) 06/03/23 04:36 Albumin 1.6 g/dL (3.4-5.0) L 06/03/23 04:36 Globulin 6.1 g/dL (2.5-4.5) H 06/03/23 04:36 Albumin/Globulin Ratio 0.3 Ratio (1.1-2.1) L 06/03/23 04:36 Specimen Type Clean catch urine 06/01/23 03:45 Urine Color Pale yellow (YELLOW) 06/01/23 03:45 Urine Appearance Clear (CLEAR) 06/01/23 03:45 Urine pH 7.0 (5.0 - 8.0) 06/01/23 03:45 Ur Specific [place] 1.015 (1.000-1.030) 06/01/23 03:45 Urine Protein 3+ (NEGATIVE) 06/01/23 03:45 Urine Glucose (UA) 1+ (NEGATIVE) 06/01/23 03:45 Urine Ketones Negative (NEGATIVE) 06/01/23 03:45 Urine Blood 2+ (NEGATIVE) 06/01/23 03:45 Urine Nitrite Negative (NEGATIVE) 06/01/23 03:45 Urine Bilirubin Negative (NEGATIVE) 06/01/23 03:45 Urine Urobilinogen Normal (NORMAL) 06/01/23 03:45 Ur Leukocyte Esterase Negative (NEGATIVE) 06/01/23 03:45 Urine RBC 0-2 /HPF (0-3) 06/01/23 03:45 Urine WBC 0-2 /HPF (0-5) 06/01/23 03:45 Ur Squamous Epith Cells Rare /HPF (NEGATIVE) 06/01/23 03:45 Urine Bacteria Negative /HPF (NEGATIVE) 06/01/23 03:45 Ur Culture Indicated? Yes/culture set up 06/01/23 03:45 Stl Occult Blood (IFOB) Negative (NEGATIVE) 06/04/23 01:45 Blood Type A POSITIVE 05/31/23 14:26 Antibody Screen Negative 05/31/23 14:26 Crossmatch See Detail 05/31/23 14:26 - Plan (1) Symptomatic anemia Status: Acute Plan: NORMAL SALINE AT 80 ML/HR, ROCEPHIN 1G IV DAILY, OTBS ACHS, HUMULIN R SLIDING SCALE, DUONEBS TID, PULMICORT NEBS BID, DILAUDID 1MG IV Q3H PRN. RESUME HOME MEDS (2) Leukocytosis Status: Acute Qualifiers: Leukocytosis type: unspecified Qualified Code(s): D72.829 - Elevated white blood cell count, unspecified (3) Right below-knee amputee Status: Acute (4) PVD (peripheral vascular disease) Status: Acute (5) CAD (coronary artery disease) Status: Chronic Qualifiers: Coronary Disease-Associated Artery/Lesion type: [place] artery [place] vs. transplanted heart: [place] heart Associated angina: unspecified whether angina present Qualified Code(s): I25.10 - Atherosclerotic heart disease of [place] coronary artery without angina pectoris (6) COPD exacerbation Status: Acute Plan: NET TX, CONTINUE TO MONITOR (7) CHF (congestive heart failure) Status: Chronic Qualifiers: Heart failure type: unspecified Heart failure chronicity: chronic Qualified Code(s): I50.9 - Heart failure, unspecified Plan: CONTINUE TO MONITOR (8) Hypertension Status: Chronic Qualifiers: Hypertension type: primary hypertension Qualified Code(s): I10 - Essential (primary) hypertension Plan: CONTINUE TOPROL XL (9) Diabetes mellitus, type 2 Status: Chronic Qualifiers: Diabetes mellitus retirement insulin use: with retirement use Diabetes mellitus complication status: without complication Qualified Code(s): E11.9 - Type 2 diabetes mellitus without complications; Z79.4 - continuous churn buttermaker (current) use of insulin Plan: OTBS ACHS, CONTINUE HUMULIN R SLIDING SCALE (10) Hyperlipidemia Status: Chronic Qualifiers: Hyperlipidemia type: mixed hyperlipidemia Plan: RESUME CRESTOR
[2023-06-04] MEDS ORDERED: NS 500 ML IV 500 ML IV ONE ×2 (12:28→17:50)
[2023-06-04] MEDS: SNACK - Diabetic Appropriate PO SCH (20:11)
[2023-06-04] MEDS: CRESTOR TAB 10 MG PO SCH (20:45)
[2023-06-04] MEDS: PEPCID TAB 40 MG PO SCH (20:46)
[2023-06-04] MEDS: ROCEPHIN VIAL 1 GRAM 1 G in NS 100 ML IV 100 ML IV SCH (21:12)
[2023-06-04 22:10] LABS: HEMATOCRIT 24.6 % (42.0-54.0)
--- NOTE | 2023-06-04 23:59 | NOTE.SOAP ---
Soap Note Note for Day of Date of Exam: 06/04/23 Subjective Data Subjective Data: POD #1 s/p right below knee amputation. Doing well. Recent diagnosis of severe anemia and past history of colon cancer. He has refused upper and lower endoscopy. Objective Data Temperature: 98 F Pulse Rate: 66 Respiratory Rate: 22 Blood Pressure: 140/64 O2 Sat by Pulse Oximetry: 98 Objective Data: Right BKA dressing intact.Hgb=8.0 Assessment Assessment: s/p right BKA Plan Plan: Arrange Hospice and discharge
[2023-06-05] MEDS: NS 1,000 ML IV 1,000 ML IV SCH ×2 (02:07→11:14)
[2023-06-05 05:10] LABS: BASOPHILS # (AUTO) 0.1 X10^3/uL (0.0-0.1); BASOPHILS % (AUTO) 0.6 % (0.2-1.0); EOSINOPHILS # (AUTO) 0.1 x10^3/uL (0.0-0.2); EOSINOPHILS % (AUTO) 1.7 % (0.9-2.9); HEMATOCRIT 23.7 % (42.0-54.0); HEMOGLOBIN 7.7 g/dL (13.5-18.0); LYMPHOCYTES # (AUTO) 0.7 X10^3/uL (1.3-2.9); LYMPHOCYTES % (AUTO) 7.7 % (21.0-51.0); MEAN CORPUSCULAR HEMOGLOBIN 24.4 pg (27.0-34.0); MEAN CORPUSCULAR HGB CONC 32.5 g/dL (33.0-35.0); MEAN CORPUSCULAR VOLUME 75.1 fL (80.0-100.0); MONOCYTES # (AUTO) 0.9 x10^3/uL (0.3-0.8); MONOCYTES % (AUTO) 10.5 % (0.0-13.0); NEUTROPHILS # (AUTO) 7.1 x10^3/uL (2.2-4.8); NEUTROPHILS % (AUTO) 79.5 % (42.0-75.0); PLATELET COUNT 216 X10^3/uL (150.0-450.0); RED BLOOD COUNT 3.16 X10^6/uL (4.7-6.0); RED CELL DISTRIBUTION WIDTH 23.4 % (11.6-16.5)
[2023-06-05 05:20] LABS: ALBUMIN 1.3 g/dL (3.4-5.0); CALCIUM 7.8 mg/dL (8.5-10.1); CARBON DIOXIDE 30.6 mmol/L (21-32); CREATININE 1.72 mg/dL (0.70-1.30); POTASSIUM 4.3 mmol/L (3.5-5.1); TOTAL PROTEIN 6.5 g/dL (6.4-8.2)
[2023-06-05 05:21] LABS: ANISOCYTOSIS 2+; HYPOCHROMASIA 1+; MICROCYTOSIS SLIGHT; OVALOCYTES PRESENT; PLATELET MORPHOLOGY COMMENT NORMAL (NORMAL)
[2023-06-05] MEDS ORDERED: TOPROL XL PO ONE (07:49)
[2023-06-05] MEDS: NICOTINE PATCH TD SCH (08:55)
[2023-06-05] MEDS: CHECK PATCH XX SCH ×2 (08:56→21:55)
[2023-06-05] MEDS: TOPROL XL PO SCH (08:56)
[2023-06-05] MEDS: CARDIZEM CD 180 MG 24-HR PO SCH (08:56)
[2023-06-05] MEDS: CYMBALTA PO SCH (08:56)
[2023-06-05] MEDS: PATIENT'S HOME MEDICATION PO SCH (08:57)
[2023-06-05] MEDS: PROTONIX INJ 40 MG VIAL IVP SCH ×2 (08:57→20:04)
[2023-06-05 10:51] LABS: HEMATOCRIT 25.1 % (42.0-54.0); HEMOGLOBIN 8.1 g/dL (13.5-18.0)
[2023-06-05] MEDS: NovoLIN R (or HumuLIN R) SUBCUT PRN (11:15)
--- NOTE | 2023-06-05 12:08 | PCM.PROG ---
Progress Note - Progress Note for Day of Date of Exam: 06/05/23 - Subjective Subjective: IS A 67 YEAR OLD PATIENT OF OURS. HE IS CURRENTLY INPATIENT STATUS FOR TREATMENT OF SYMPTOMATIC ANEMIA AND LEUKOCYTOSIS. HE HAS A PMH OF TIAs, PERIPHERAL ARTERY DISEASE, CORONARY ARTERY DISEASE, CHF, [place], HTN, CARDIAC STENTS, COPD, SLEEP APNEA, GERD, DM II, DIABETIC NEUROPATHY, ANEMIA, PAST HX OF COLON CANCER. SURGICAL HX INCLUDES: APPENDECTOMY, BOWEL RESECTION, MULTIPLE HERNIA REPAIRS, RIGHT FOOT SURGERY. PATIENT ALSO HAD A CHRONIC WOUND TO THE RIGHT HEEL WITH OSTEOMYELITIS AND IS DAY 3 STATUS POST RIGHT BTK AMPUTATION. HE HAS RECEIVED SIX UNITS OF PACKED RED BLOOD CELLS SINCE ADMISSION. TODAY, HE IS ALERT AND ORIENTED, LYING IN BED ON MORNING ROUNDS. HE COMPLAINS OF LOW BACK PAIN AT TIMES, BUT IS NOT CURRENTLY HAVING ANY PAIN. ON EXAMINATION, HEART IS REGULAR IN RATE AND RHYTHM. BILATERAL LUNGS ARE NOTED WITH DIMINISHED LUNG SOUNDS THROUGHOUT. ABDOMEN IS ROUND, SOFT, AND NON-TENDER WITH NORMAL BOWEL SOUNDS NOTED IN ALL QUADRANTS. THERE IS A SURGICAL DRESSING TO THE RIGHT STUMP. GOOD RANGE OF MOTION NOTED TO UPPER AND LOWER EXTREMITIES. HIS VITALS THIS MORNING WERE: 97.5-72-18-95%-142/66. HE IS CURRENTLY ON OXYGEN VIA NASAL CANNULA AT 3 LPM. LABS WERE OBTAINED. WBC 9.0, RBC 3.16, HGB 7.7, HCT 23.7, PLT COUNT 216, SODIUM 141, POTASSIUM 4.3, CHLORIDE 107, BUN 24, CREATININE 1.72, GLUCOSE 130, CALCIUM 7.8, AST 17, ALT 13, ALK PHOS 161, TOTAL PROTEIN 6.5, ALBUMIN 1.3. HE IS CURRENTLY RECEIVING NORMAL SALINE AT 80 ML/HR, ROCEPHIN 1G IV DAILY, OTBS ACHS, HUMULIN R SLIDING SCALE, DUONEBS TID, PULMICORT NEBS BID, DILAUDID 1MG IV Q3H PRN, . HIS HOME MEDICATIONS OF CARDIZEM, CYMBALTA, DURAGESIC PATCH, TOPROL XL, ZOFRAN PRN, ROXICODONE PRN, COMPAZINE PRN, AND CRESTOR WERE RESUMED. WE WILL CONTINUE WITH CURRENT PLAN OF CARE TODAY. , GENERAL AND VASCULAR [place] RGEON, WILL CONTINUE TO FOLLOW PATIENT. WE WILL MONITOR HIS H&H AND TRANSFUSE ADDITIONAL UNITS IF NEEDED. WE WILL ALSO ADD ALBUMIN 25% IV DAILY. OTHERWISE, WE PLAN TO FOLLOW UP WITH AM LABS AND CONTINUE TO MONITOR. TIME SPENT ON CLINICAL ASSESSMENT, REVIEWING LABS AND IMAGING, DECISION MAKING, AND DOCUMENTATION GREATER THAN 45 MINUTES. - Past Medical Family Social History Past Med/Fam/Surg Hx: No changes since H&P Allergies: Allergies No Known Drug Allergies Allergy (Verified 05/31/23 15:36) - Review of Systems ROS: No change since H&P - Vital Signs and I&O's Vital Signs: Vital Signs Temperature 97.5 F Pulse Rate [Left Radial] 72 Respiratory Rate 18 Blood Pressure [Left Arm] 142/66 O2 Sat by Pulse Oximetry 95 Intake and Output: Intake & Output 06/03/23 06/04/23 06/05/23 06/06/23 11:59 11:59 11:59 11:59 Intake Total 1520 / 1520 6226 / 6226 4447 / 4447 Output Total 1500 / 1500 Balance 1520 / 1520 4726 / 4726 4447 / 4447 - Physical Exam Oriented: Normal Eyes: Normal Ear: Normal Nose: Normal Throat: Normal Respiratory: Diminished Cardiovascular: Normal : Normal Auscultation: Bowel Sounds: Normal Tenderness: Normal Skin: Wound (RIGHT BTK AMPUTATION ) Musculoskeletal: Back:Lumbar Psychiatric: Normal Mood Description: Calm Affect: Normal Speech Pattern: Clear - Laboratory and Diagnostics Result Diagrams: 06/05/23 10:45 06/05/23 04:46 Labs: 06/01/23 03:45 Urine,Clean Catch Urine Culture - Final Laboratory WBC 9.0 X10^3/uL (3.6-10.0) 06/05/23 04:46 RBC 3.16 X10^6/uL (4.7-6.0) L 06/05/23 04:46 Hgb 8.1 g/dL (13.5-18.0) L 06/05/23 10:45 Hct 25.1 % (42.0-54.0) L 06/05/23 10:45 MCV 75.1 fL (80.0-100.0) L 06/05/23 04:46 MCH 24.4 pg (27.0-34.0) L 06/05/23 04:46 MCHC 32.5 g/dL (33.0-35.0) L 06/05/23 04:46 RDW 23.4 % (11.6-16.5) H 06/05/23 04:46 Plt Count 216 X10^3/uL (150.0-450.0) 06/05/23 04:46 Plt Count Comment Adequate (ADEQUATE) 06/05/23 04:46 MPV 7.0 fL (7.4-11.0) L 06/05/23 04:46 Neut % (Auto) 79.5 % (42.0-75.0) H 06/05/23 04:46 Lymph % (Auto) 7.7 % (21.0-51.0) L 06/05/23 04:46 [place] % (Auto) 10.5 % (0.0-13.0) 06/05/23 04:46 Eos % (Auto) 1.7 % (0.9-2.9) 06/05/23 04:46 Baso % (Auto) 0.6 % (0.2-1.0) 06/05/23 04:46 Neut # (Auto) 7.1 x10^3/uL (2.2-4.8) H 06/05/23 04:46 Lymph # (Auto) 0.7 X10^3/uL (1.3-2.9) L 06/05/23 04:46 [place] # (Auto) 0.9 x10^3/uL (0.3-0.8) H 06/05/23 04:46 Eos # (Auto) 0.1 x10^3/uL (0.0-0.2) 06/05/23 04:46 Baso # (Auto) 0.1 X10^3/uL (0.0-0.1) 06/05/23 04:46 Absolute Nucleated RBC 0.0 /100WBC 06/05/23 04:46 Plt Morphology Comment Normal (NORMAL) 06/05/23 04:46 RBC Morphology Abnormal (NORMAL) 06/05/23 04:46 Dimorphic RBCs Present 06/01/23 03:45 Hypochromasia 1+ A 06/05/23 04:46 Poikilocytosis Present 06/01/23 03:45 Anisocytosis 2+ A 06/05/23 04:46 Microcytosis Slight A 06/05/23 04:46 Target Cells Slight A 06/02/23 06:03 Ovalocytes Present 06/05/23 04:46 Stomatocytes Present 06/03/23 04:36 Sodium 141 mmol/L (136-145) 06/05/23 04:46 Corrected Sodium 142 mmol/L (136-145) 06/05/23 04:46 Potassium 4.3 mmol/L (3.5-5.1) 06/05/23 04:46 Chloride 107 mmol/L (98-107) 06/05/23 04:46 Carbon Dioxide 30.6 mmol/L (21-32) 06/05/23 04:46 BUN 24 mg/dL (7-18) H 06/05/23 04:46 Creatinine 1.72 mg/dL (0.70-1.30) H 06/05/23 04:46 Est GFR (MDRD) Af Amer 51 (>60) L 06/05/23 04:46 Est GFR (MDRD) Non-Af 42 (>60) L 06/05/23 04:46 Glucose 130 mg/dL (65-99) H 06/05/23 04:46 POC Glucose (mg/dL) 192 mg/dL (65-99) H 06/05/23 11:05 Calcium 7.8 mg/dL (8.5-10.1) L 06/05/23 04:46 Corrected Calcium 10.0 mg/dL (8.5-10.1) 06/05/23 04:46 Magnesium 2.6 mg/dL (2.0-2.9) 06/04/23 04:40 Total Bilirubin 0.20 mg/dL (0.2-1.0) 06/05/23 04:46 AST 17 Units/L (15-37) 06/05/23 04:46 ALT 13 Units/L (12-78) 06/05/23 04:46 Alkaline Phosphatase 161 Units/L (46-116) H 06/05/23 04:46 Total Protein 6.5 g/dL (6.4-8.2) 06/05/23 04:46 Albumin 1.3 g/dL (3.4-5.0) L 06/05/23 04:46 Globulin 5.2 g/dL (2.5-4.5) H 06/05/23 04:46 Albumin/Globulin Ratio 0.3 Ratio (1.1-2.1) L 06/05/23 04:46 Specimen Type Clean catch urine 06/01/23 03:45 Urine Color Pale yellow (YELLOW) 06/01/23 03:45 Urine Appearance Clear (CLEAR) 06/01/23 03:45 Urine pH 7.0 (5.0 - 8.0) 06/01/23 03:45 Ur Specific [place] 1.015 (1.000-1.030) 06/01/23 03:45 Urine Protein 3+ (NEGATIVE) 06/01/23 03:45 Urine Glucose (UA) 1+ (NEGATIVE) 06/01/23 03:45 Urine Ketones Negative (NEGATIVE) 06/01/23 03:45 Urine Blood 2+ (NEGATIVE) 06/01/23 03:45 Urine Nitrite Negative (NEGATIVE) 06/01/23 03:45 Urine Bilirubin Negative (NEGATIVE) 06/01/23 03:45 Urine Urobilinogen Normal (NORMAL) 06/01/23 03:45 Ur Leukocyte Esterase Negative (NEGATIVE) 06/01/23 03:45 Urine RBC 0-2 /HPF (0-3) 06/01/23 03:45 Urine WBC 0-2 /HPF (0-5) 06/01/23 03:45 Ur Squamous Epith Cells Rare /HPF (NEGATIVE) 06/01/23 03:45 Urine Bacteria Negative /HPF (NEGATIVE) 06/01/23 03:45 Ur Culture Indicated? Yes/culture set up 06/01/23 03:45 Stl Occult Blood (IFOB) Negative (NEGATIVE) 06/04/23 01:45 Blood Type A POSITIVE 06/04/23 10:05 Antibody Screen Negative 06/04/23 10:05 Crossmatch See Detail 06/04/23 10:05 - Plan (1) Symptomatic anemia Status: Acute Plan: NORMAL SALINE AT 80 ML/HR, ROCEPHIN 1G IV DAILY, OTBS ACHS, HUMULIN R SLIDING SCALE, DUONEBS TID, PULMICORT NEBS BID, DILAUDID 1MG IV Q3H PRN. RESUME HOME MEDS (2) Leukocytosis Status: Acute Qualifiers: Leukocytosis type: unspecified Qualified Code(s): D72.829 - Elevated white blood cell count, unspecified (3) Right below-knee amputee Status: Acute (4) PVD (peripheral vascular disease) Status: Acute Plan: RIGHT BTK AMPUTATION TODAY (5) CAD (coronary artery disease) Status: Chronic Qualifiers: Coronary Disease-Associated Artery/Lesion type: [place] artery [place] vs. transplanted heart: [place] heart Associated angina: unspecified whether angina present Qualified Code(s): I25.10 - Atherosclerotic heart disease of [place] coronary artery without angina pectoris (6) COPD exacerbation Status: Acute Plan: NET TX, CONTINUE TO MONITOR (7) Hypoalbuminemia Status: Acute Plan: ALBUMIN 25% IV DAILY (8) CHF (congestive heart failure) Status: Chronic Qualifiers: Heart failure type: unspecified Heart failure chronicity: chronic Qualified Code(s): I50.9 - Heart failure, unspecified Plan: CONTINUE TO MONITOR (9) Hypertension Status: Chronic Qualifiers: Hypertension type: primary hypertension Qualified Code(s): I10 - Essential (primary) hypertension Plan: CONTINUE TOPROL XL (10) Diabetes mellitus, type 2 Status: Chronic Qualifiers: Diabetes mellitus shelter insulin use: with shelter use Diabetes mellitus complication status: without complication Qualified Code(s): E11.9 - Type 2 diabetes mellitus without complications; Z79.4 - residential (current) use of insulin Plan: OTBS ACHS, CONTINUE HUMULIN R SLIDING SCALE (11) Hyperlipidemia Status: Chronic Qualifiers: Hyperlipidemia type: mixed hyperlipidemia Plan: RESUME CRESTOR
[2023-06-05] MEDS: ALBUMIN HUMAN 25%- 100 ML 100 ML IV SCH (12:32)
--- NOTE | 2023-06-05 13:28 | DR.OPNOTE ---
OP NOTE Pre-Op Diagnosis: Osteomyelitis right foot, non-healing wound right heel Post-Op Diagnosis: same Procedure Date Date Of Procedure: 06/03/23 Procedure: PROCEDURE : right below knee amputation NARRATIVE: The patient was taken to the operative suite and placed in the Supine position. General anesthesia induced with an L M A to protect the airway. The entire right leg was prepped and draped in sterile fashion. Time out for the procedure obtained. A planned dog- legged incision one hands breath below the tibial tuberosity was drawn on with indelible marker and then incision made with a 10 blade knife. There was significant edema and bleeding. This was controlled with electrocautery. The tissue across the tibia and and the anterior tibial compartment divided with electrocautery and anterior tibial artery clamped and tied was 2-0 silk suture ligatures. The periosteum of the tibia elevated as was that of the fibula. The tibia was divided with a Gigli saw and the fibula divided with a bone cutter. Amputation knife used to complete the amputation. The tibial-peroneal arterial trunk was clamped and tied with a 2-0 silk suture ligature. Other small vessels clamped and tied with 2-0 silk suture ligatures . The rest of hemostasis obtained with electrocautery. Wound was irrigated. The two flaps approximated using interrupted 0- Vicryl suture and skin closed with skin janeen. Compressive dressing applied. Patient extubated and taken to the recovery room in good condition. Type of Anesthesia: General Anesthetic w/mask (with LMA) Findings: as above , very edematous right leg Specimen/Pathology: right leg below knee Type of Fluids Used:: Lactated Ringers EBL: 500 cc Complications:: none Needle/Sponge Count:: correct Disposition/Condition: Pt. tolerated procedure without difficulty. Extubated in the OR and taken to PACU in stable condition.
[2023-06-05 17:05] LABS: HEMATOCRIT 23.2 % (42.0-54.0); HEMOGLOBIN 7.5 g/dL (13.5-18.0)
[2023-06-05] MEDS: CRESTOR TAB 10 MG PO SCH (20:04)
[2023-06-05] MEDS: ROCEPHIN VIAL 1 GRAM 1 G in NS 100 ML IV 100 ML IV SCH (20:04)
[2023-06-05] MEDS: PEPCID TAB 40 MG PO SCH (20:05)
[2023-06-05] MEDS: ROXICODONE TAB 5 MG PO PRN (20:06)
[2023-06-05] MEDS: SNACK - Diabetic Appropriate PO SCH (20:11)
--- NOTE | 2023-06-05 20:25 | NOTE.SOAP ---
Soap Note Note for Day of Date of Exam: 06/05/23 Subjective Data Subjective Data: POD # 2 after right BKA.Patient stable.Pain adequately controlled. Objective Data Temperature: 97.5 F Pulse Rate: 72 Respiratory Rate: 18 Blood Pressure: 142/66 O2 Sat by Pulse Oximetry: 98 Objective Data: Good extension of the right BKA. Dressing intact with no bleeding . Hgb=7.5, 8.1 this AM.Cr=1.72 Assessment Assessment: s/p right BKA Plan Plan: Await placement.
[2023-06-05 23:05] LABS: HEMATOCRIT 24.2 % (42.0-54.0); HEMOGLOBIN 7.8 g/dL (13.5-18.0)
[2023-06-06 06:15] LABS: ALBUMIN 1.8 g/dL (3.4-5.0); CARBON DIOXIDE 30.1 mmol/L (21-32); COR CA(FOR HYPOALB) 9.8 mg/dL (8.5-10.1); CREATININE 1.7 mg/dL (0.70-1.30); TOTAL PROTEIN 7.3 g/dL (6.4-8.2)
[2023-06-06 06:26] LABS: BASOPHILS % (AUTO) 0.6 % (0.2-1.0); EOSINOPHILS # (AUTO) 0.2 x10^3/uL (0.0-0.2); HEMATOCRIT 25.3 % (42.0-54.0); HEMOGLOBIN 8.2 g/dL (13.5-18.0); LYMPHOCYTES # (AUTO) 0.8 X10^3/uL (1.3-2.9); LYMPHOCYTES % (AUTO) 9.7 % (21.0-51.0); MEAN CORPUSCULAR HEMOGLOBIN 24.4 pg (27.0-34.0); MEAN CORPUSCULAR HGB CONC 32.5 g/dL (33.0-35.0); MEAN CORPUSCULAR VOLUME 75.2 fL (80.0-100.0); MEAN PLATELET VOLUME 7.5 fL (7.4-11.0); MONOCYTES # (AUTO) 0.7 x10^3/uL (0.3-0.8); MONOCYTES % (AUTO) 8.8 % (0.0-13.0); NEUTROPHILS # (AUTO) 6.3 x10^3/uL (2.2-4.8); NEUTROPHILS % (AUTO) 78.9 % (42.0-75.0); PLATELET COUNT 236 X10^3/uL (150.0-450.0); RED BLOOD COUNT 3.36 X10^6/uL (4.7-6.0); RED CELL DISTRIBUTION WIDTH 23.6 % (11.6-16.5)
[2023-06-06 07:06] LABS: ANISOCYTOSIS 2+; HYPOCHROMASIA SLIGHT; MICROCYTOSIS SLIGHT; PLATELET MORPHOLOGY COMMENT NORMAL (NORMAL)
[2023-06-06 07:07] LABS: OVALOCYTES SLIGHT
[2023-06-06] MEDS ORDERED: TOPROL XL PO ONE (08:04)
[2023-06-06] MEDS: CARDIZEM CD 180 MG 24-HR PO SCH (08:30)
[2023-06-06] MEDS: TOPROL XL PO SCH (08:30)
[2023-06-06] MEDS: PROTONIX INJ 40 MG VIAL IVP SCH ×2 (08:30→20:47)
[2023-06-06] MEDS: ALBUMIN HUMAN 25%- 100 ML 100 ML IV SCH (08:30)
[2023-06-06] MEDS: CYMBALTA PO SCH (08:30)
[2023-06-06] MEDS: NICOTINE PATCH TD SCH (08:31)
[2023-06-06] MEDS: PATIENT'S HOME MEDICATION PO SCH (09:00)
[2023-06-06] MEDS: CHECK PATCH XX SCH ×2 (09:51→21:04)
[2023-06-06] MEDS ORDERED: DUONEB 0.5 MG/3 MG (3 mL) NEB ONE (11:45)
[2023-06-06 12:11] LABS: ABG BASE EXCESS -2.7 mmol/L (-2.0-2.0); ABG HCO3 27.4 mmol/L (22-26)
[2023-06-06 12:12] LABS: ABG ALLEN TEST POS
[2023-06-06] MEDS: NS 1,000 ML IV 1,000 ML IV SCH (14:23)
[2023-06-06] MEDS: NovoLIN R (or HumuLIN R) SUBCUT PRN (16:26)
[2023-06-06] MEDS: CRESTOR TAB 10 MG PO SCH (20:33)
[2023-06-06] MEDS: PEPCID TAB 40 MG PO SCH (20:34)
[2023-06-06] MEDS: ROCEPHIN VIAL 1 GRAM 1 G in NS 100 ML IV 100 ML IV SCH (20:47)
[2023-06-06] MEDS: SNACK - Diabetic Appropriate PO SCH (21:04)
[2023-06-06 22:07] VITALS: RESP 20
[2023-06-07] MEDS: NS 1,000 ML IV 1,000 ML IV SCH (02:58)
[2023-06-07] MEDS: ROXICODONE TAB 5 MG PO PRN (04:46)
[2023-06-07 05:20] LABS: BASOPHILS # (AUTO) 0.1 X10^3/uL (0.0-0.1); BASOPHILS % (AUTO) 0.7 % (0.2-1.0); EOSINOPHILS # (AUTO) 0.1 x10^3/uL (0.0-0.2); EOSINOPHILS % (AUTO) 1.5 % (0.9-2.9); HEMATOCRIT 24.3 % (42.0-54.0); LYMPHOCYTES # (AUTO) 0.6 X10^3/uL (1.3-2.9); LYMPHOCYTES % (AUTO) 6.4 % (21.0-51.0); MEAN CORPUSCULAR HEMOGLOBIN 24.6 pg (27.0-34.0); MEAN CORPUSCULAR VOLUME 74.7 fL (80.0-100.0); MEAN PLATELET VOLUME 7.5 fL (7.4-11.0); MONOCYTES # (AUTO) 0.6 x10^3/uL (0.3-0.8); MONOCYTES % (AUTO) 7.2 % (0.0-13.0); NEUTROPHILS # (AUTO) 7.3 x10^3/uL (2.2-4.8); NEUTROPHILS % (AUTO) 84.2 % (42.0-75.0); PLATELET COUNT 230 X10^3/uL (150.0-450.0); RED BLOOD COUNT 3.25 X10^6/uL (4.7-6.0); RED CELL DISTRIBUTION WIDTH 23.8 % (11.6-16.5); WHITE BLOOD COUNT 8.6 X10^3/uL (3.6-10.0)
[2023-06-07 05:30] LABS: ALBUMIN 1.9 g/dL (3.4-5.0); CALCIUM 7.8 mg/dL (8.5-10.1); CARBON DIOXIDE 29.9 mmol/L (21-32); COR CA(FOR HYPOALB) 9.5 mg/dL (8.5-10.1); CREATININE 1.58 mg/dL (0.70-1.30); POTASSIUM 3.7 mmol/L (3.5-5.1); TOTAL PROTEIN 7.1 g/dL (6.4-8.2)
[2023-06-07 05:37] LABS: ANISOCYTOSIS 2+; HYPOCHROMASIA 1+; MICROCYTOSIS SLIGHT; PLATELET MORPHOLOGY COMMENT NORMAL (NORMAL)
[2023-06-07 05:38] LABS: OVALOCYTES SLIGHT; TARGET CELLS SLIGHT
[2023-06-07 05:48] VITALS: O2SAT 96
[2023-06-07 07:58] VITALS: BP 183/82; PULSE 79; TEMP 97
[2023-06-07] MEDS ORDERED: TOPROL XL PO ONE (08:03)
[2023-06-07] MEDS: TOPROL XL PO SCH (08:38)
[2023-06-07] MEDS: CYMBALTA PO SCH (08:38)
[2023-06-07] MEDS: PROTONIX INJ 40 MG VIAL IVP SCH (08:38)
[2023-06-07] MEDS: PATIENT'S HOME MEDICATION PO SCH (08:39)
[2023-06-07] MEDS: CARDIZEM CD 180 MG 24-HR PO SCH (08:39)
[2023-06-07] MEDS: ALBUMIN HUMAN 25%- 100 ML 100 ML IV SCH (08:39)
[2023-06-07] MEDS: DURAGESIC 75 mcg/HR PATCH TD SCH (08:42)
[2023-06-07] MEDS: NICOTINE PATCH TD SCH (08:42)
[2023-06-07] MEDS ORDERED: LASIX IVP ONE (08:44)
[2023-06-07 08:51] LABS: ABG BASE EXCESS 4.6 mmol/L (-2.0-2.0); ABG HCO3 29.8 mmol/L (22-26)
[2023-06-07 08:52] LABS: ABG ALLEN TEST POS
[2023-06-07] MEDS: CHECK PATCH XX SCH (08:59)
[2023-06-07] MEDS ORDERED: PEPCID TAB 20 MG PO SCH (21:00)
== END 2023-06-07 11:00 | disposition home health service (06) | DRG 475 ==
LOC: MED/SURG → UNDODISIN 06-06 11:25
PROVIDERS: ADMIT Internal Medicine; ATTEND Internal Medicine
DX: I48.91 Unspecified atrial fibrillation; R06.02 Shortness of breath; M86.171 Other acute osteomyelitis, right ankle and foot; Z86.73 Personal history of transient ischemic attack (TIA), and cerebral infarction without residual deficits; N18.9 Chronic kidney disease, unspecified; R41.82 Altered mental status, unspecified; N17.8 Other acute kidney failure; E78.5 Hyperlipidemia, unspecified; E11.65 Type 2 diabetes mellitus with hyperglycemia; I50.9 Heart failure, unspecified; J44.1 Chronic obstructive pulmonary disease with (acute) exacerbation; I25.10 Atherosclerotic heart disease of native coronary artery without angina pectoris; D64.89 Other specified anemias; I13.0 Hypertensive heart and chronic kidney disease with heart failure and stage 1 through stage 4 chronic kidney disease, or unspecified chronic kidney disease; E86.0 Dehydration; I73.89 Other specified peripheral vascular diseases; R53.1 Weakness; Z47.89 Encounter for other orthopedic aftercare; Z85.038 Personal history of other malignant neoplasm of large intestine; Z79.4 Long term (current) use of insulin